=== PATIENT | male | born 1965 | race Caucasian/White ===

== ENCOUNTER 2018-06-27 08:30 | Outpatient (AMBR) | payer MEDICARE, MEDICAID, SELFPAY ==
--- NOTE | 2018-06-20 08:45 | PT.OIERPT ---
PT OP Initial Eval Patient Information Visit Reasons: knee pain Medical Diagnosis: Z47.89 Treatment Dx #1: Right Knee Mobility Deficits Treatment Dx #2: Right Knee Weakness Start of Care: 06/20/18 Date of Onset: 05/28/18 Initial Assessment Subjective Pt is a 52 y/o male s/p right knee arthroscopic surgery with hardware removal from the proximal tibia. Pt still has pain (7/10) leading to difficulty with functional tasks. Pt has difficulty with prolonged sitting, standing, chores, yardwork, recreational activities, and performing normal ADLs. Objective Right Knee AROM: 0 deg to 115 deg Right Knee MMTs Quads: 4-/5 Hs: 3/5 Right Hip MMTs Glute Med: 3/5 Glute Max: 3/5 Knee Cap Mobility: decrease in all plane Knee Outcome Score: 21% Assessment Pt demonstrate right knee mobility and strength deficits s/p arthroscopy leading to decline function and difficulty with functional tasks. 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 1) Increase right knee MMTs to 4/5 and knee outcome score to 69% in 6 wks to be able to perform squatting and kneeling activities 2) Increase right knee AROM WNL in 6 wks to be able to perform recreational activities 3) Increase right hip MMTs to 4-/5 in 6 wks to be able to walk more than 1 mile 4) Indep with HEP Treatment Plan 1) Manual Therapy 2) Therapeutic Activities 3) Therapeutic Exercises 4) Modalities (ice, heat, e-stim) 5) Balance Training 6) Gait Training Frequency and Duration 2 x wk for 6 wks Certification Dates: 06/20/18 to 09/20/18 Office Procedures PT Outpatient G-Codes Date of Service PT Date of Service: 06/20/18 G-Codes Walking & Moving Around Mobility Current Status G-Code: G8978: CM 80-100% Mobility Status G-Code: G8979: CJ 20-40% PT Procedures PT Date of Service: 06/20/18 OP PT Eval Mod Complex 30 minutes: Yes
--- NOTE | 2018-06-27 09:42 | PT.ODAYNRPT ---
PT Outpatient Daily Note Date of Service: June 27, 2018 OP Daily Note Visit Reasons: knee pain Outpatient Physical Therapy Treatment Date: 06/27/18 Subjective: Pt is walking half a football field. Pt's knee is stiff this morning. Objective: Please see flow chart for list of ther ex performed Assessment: tolerate exercises with minimal pain Plan: Continue with PT Length of Time (minutes) of Treatment: 30 Minutes Office Procedures PT Outpatient G-Codes Date of Service PT Date of Service: 06/20/18 G-Codes Walking & Moving Around Mobility Current Status G-Code: G8978: CM 80-100% Mobility Status G-Code: G8979: CJ 20-40% PT Procedures PT Date of Service: 06/20/18 OP PT Eval Mod Complex 30 minutes: Yes PT Procedures PT Date of Service: 06/27/18 Therapeutic Exercise 30 minutes: Yes
== END 2018-07-09 23:59 | disposition home or self-care (01) ==
PROVIDERS: PCP Physician Assistant; Visit Provider Orthopaedic Surgery
DX: Z47.89 Encounter for other orthopedic aftercare (principal); M25.561 Pain in right knee; R53.1 Weakness
CPT/HCPCS: 97110; 97162; G8978; G8979

== ENCOUNTER → 2024-02-06 | Outpatient (BNVA) | payer MEDICARE, MEDICAID, SELFPAY | END | disposition home or self-care (01) | PROVIDERS: PCP Physician Assistant; Referring Provider Physician Assistant; Visit Provider Urology | DX: N40.1 Benign prostatic hyperplasia with lower urinary tract symptoms (principal); R39.12 Poor urinary stream | CPT/HCPCS: 51741; 51798 ==

== ENCOUNTER 2024-07-28 08:12 | Outpatient (AMB) | payer MEDICARE, MEDICAID, SELFPAY ==
[2024-07-28 08:24] VITALS: BP 151/95; PULSE 78; RESP 19; TEMP 36.8; O2SAT 97; BMI 34.9
--- NOTE | 2024-07-28 08:24 | PD.ORTHCLVIS ---
Vital signs 07/28/24 08:24 Height 1.83 m Height Method Stated Weight 116.772 kg Weight Measurement Method Standing Scale BMI 34.9 BP 151/95 H Blood Pressure Source Automatic Cuff Blood Pressure Location Left Upper Arm Position Sitting Respiration 19 Pulse 78 Pulse Source Monitor Temp 98.3 F Temp Source Oral Pulse Oximetry (%) 97 Oxygen Delivery Method Room Air Med/Allergies Allergies & Medications Allergies No Known Allergies Allergy (Verified 07/28/24 08:26) Medication Reconciliation benazepril 40 mg tablet (Lotensin) 40 mg PO QDAY 01/27/18 [History Confirmed 07/28/24] ibuprofen 800 mg tablet 800 mg PO TID PRN Pain 08/11/19 [History Confirmed 07/28/24] multivitamin 1 tab PO QDAY 01/21/24 [History Confirmed 07/28/24] tadalafil 5 mg tablet (Cialis) 5 mg PO QDAY 01/21/24 [History Confirmed 07/28/24] tamsulosin 0.4 mg capsule 0.4 mg PO QDAY 01/21/24 [History Confirmed 07/28/24] Subjective Visit Visit for: new patient and knee Immunization / Flu Flu Vaccine in the Last 12 Months: No Flu Vaccine Exclusion Criteria: No Exclusion Criteria History of Present Illness Chief complaint: RIGHT KNEE OSTEOARTHRITIS Reji is a pleasant 58-year-old male who presents today for evaluation of his right knee. He has a history of multiple ACL reconstructions in the past. He is also tried cortisone injections, hyaluronic acid, ibuprofen, and physical therapy. He reports significant pain on the right knee and is using a cane. His last x-rays were nonweightbearing Personal History Occupation: DISABLED Hobbies: NONE Red flag PMH: none Pain Pain level (0-10): 8 Pain duration: CONSTANT Pain quality: aching and burning Pain timing: night, increases with activity and stairs Associated signs & symptoms: numbness, weakness and stiffness Ambulatory data Ambulatory device: cane Treatments Improvement with previous injections: Yes Improvement with PT: Yes Improvement with NSAIDS: yes Review of Systems Review of Systems: All systems negative unless otherwise noted in HPI. Exam Exam Patient is in no acute distress and is cooperative with the examination today. Breathing is nonlabored. Patient has a normal mood and affect. Bilateral extremities were evaluated and demonstrates sensation intact to light touch. Palpable pedal pulses are present. No significant edema is present. Bilateral hips were examined. The patient has no pain with log roll of the hips. Internal rotation to 30 degrees and external rotation to 30 degrees is painless. Negative FADIR. Left knee was examined today. The left knee is in reasonable alignment. Range of motion from 0-120 degrees. Knee is stable to varus and valgus as well as AP translation with <5mm. Patient has a negative McMurrays. There is no pain with patellofemoral compression and no crepitus noted. The knee is nontender to palpation. The right knee was also examined. The right knee is in [varus] alignment. Range of motion from [0-115] degrees. Knee is stable to varus and valgus as well as AP translation with <5mm. Patient has a [negative] McMurrays. There is [no] pain with patellofemoral compression and [no] crepitus noted. The knee is [tender] to palpation [medially]. X-ray report demonstrates medial and lateral osteophytes as well as a large screw. The films are nonweightbearing Assessment and Plan Problem List (1) Arthritis of knee, degenerative: Status: Acute Plan: Patient is a 58-year-old male with bilateral knee pain worse on the right. Has had prior ACL reconstruction in the past. I think he has significant arthritis on x-ray but the last ones are nonweightbearing. I like to get weightbearing x-rays. We can discuss different treatment options depending on what this shows but he has tried significant care treatment already. We will see him back after his x-rays are done Office Procedures GNS Level of Care Nursing/Assessment Patient Status: Initial/New Patient Nursing Assessment/Reassesment: Medication Reconciliation, Update PMH in EMR and Vital Signs Coordination of Care: Complex Care and Chronic Disease 1-5, Education Complex Pt/Fam, Consent,records obtained, informed consent and Staff clarify orders New Patient Charge New Patient Point Assignment: 1089 New Patient Point Charge: MEDICINE ASSISTANT Level 3 ([id number]) Past Medical History Past Medical History Have you ever been diagnosed with any of the following: Neurological Problems Cerebrovascular Accident (CVA): No Transient Ischemic Attacks (TIA): No Dementia: No Alzheimer's Disease: No Parkinson's Disease: No Brain Tumor: No Meningitis: No Seizures: No Epilepsy: No Multiple Sclerosis: No Cerebral Palsy: No Amyotrophic Lateral Sclerosis (ALS/Violeta Gehrig's): No Guillain-[place] Syndrome: No Spina Bifida: No Paralysis: No Peripheral Neuropathy: No [place]'s Palsy: No Subdural Hematoma: No Migraine: No Head Trauma: Yes Spinal Cord Injury: No Traumatic Brain Injury: No Cardiology Problems Myocardial Infarction: No Cardiac Arrhythmia: No Atrial Fibrillation: No Angina: No Heart Murmur: No Coronary Artery Disease: No Atherosclerotic Heart Disease: No Peripheral Vascular Disease: No Hypercholesterolemia: Yes Aneurysm: No Congestive Heart Failure: No Congenital Heart Disease: No Valvular Heart Disease: No Rheumatic Fever: No Cardiomyopathy: No Edema: No Pericarditis: No Cellulitis: No Deep Vein Thrombosis: No Hypertension: Yes Hypotension: No Varicose Veins: No Respiratory Problems Chronic Obstructive Pulmonary Disease (COPD): No Asthma: No Bronchitis: No Emphysema: No Pneumonia: No Pulmonary Fibrosis: No Tuberculosis: No Pulmonary Embolism: No Pulmonary Edema: No Sleep Apnea: No Smoking: No Stomache/Intestinal Problems Cirrhosis: No Pancreatitis: No Celiac Disease: No Gall Bladder Disease: No Gastrointestinal Bleed: No Esophageal Varices: No Parada's Esophagus: No Colitis: No Ulcerative Colitis: No Diverticulitis: No Diverticulosis: No Ulcer: No Irritable Bowel: No Crohn's Disease: No Obstructive Bowel: No Hiatal Hernia: No Hemorrhoids: No Gastroesophageal Reflux Disease: No Obesity: No Genital/Urinary Problems Renal Disease: No Kidney Stones: No Polycystic Kidney Disease: No Neurogenic Bladder: No Inguinal Hernia: No Dialysis: No Benign Prostatic Hyperplasia: No Reproductive Problems Testicular Cancer: No Musculoskeletal Problems Muscular Dystrophy: No Myasthenia Gravis: No Marfan's Syndrome: No Arthritis: Yes Rheumatoid Arthritis: No Osteoporosis: No Degenerative Disk Disease: No Gout: No Scoliosis: No Carpal Tunnel Syndrome: Yes Fibromyalgia: No Fractures: No Degenerative Joint Disease: No Osteomyelitis: No Poliovirus: No Endocrine Problems Diabetes Mellitus Type 1: No Diabetes Mellitus Type 2: No Hypoglycemia: No [place]'s Syndrome: No Alex's Disease: No Hyperthyroidism: No Hypothyroidism: No Parathyroid Disease: No Pituitary Disease: No Systemic Lupus Erythematosus: No Syndrome of Inappropriate Antidiuretic Hormone: No Adrenal Disease: No Graves' Disease: No Psychologic Problems Depression: Yes Anxiety: Yes Other Problems Blood Transfusions: No Blood Transfusion Reaction: No Anesthesia Reactions: No MRSA: No Chicken Pox: Yes Measles: Yes Surgical History Appendectomy: Yes Total Knee Replacement: Yes Pacemaker: No
== END 2024-07-28 08:40 | disposition home or self-care (01) ==
LOC: HODSRG 08:12
PROVIDERS: PCP Nurse Practitioner Family; Referring Provider Nurse Practitioner Family; Supervising Provider Orthopaedic Surgery Adult Reconstructive Orthopaedic Surgery; Visit Provider Orthopaedic Surgery Adult Reconstructive Orthopaedic Surgery
DX: M17.11 Unilateral primary osteoarthritis, right knee (principal); M25.562 Pain in left knee; M25.561 Pain in right knee; I10 Essential (primary) hypertension; E78.00 Pure hypercholesterolemia, unspecified
CPT/HCPCS: 73564; 99203; G0463

== ENCOUNTER → 2024-07-28 | Outpatient (CLI) | payer MEDICARE, MEDICAID, SELFPAY ==
--- NOTE | 2024-07-28 09:01 | XR_ITS ---
Examination: Bilateral AP knees 2 views Right lateral knee left lateral knee 2 views Right axial knee left axial knee 2 views TECHNIQUE: Bilateral AP knees standing single view, bilateral PA knees standing 30 degrees flexion Staining right lateral knee left lateral knee 2 views Right axial knee left axial knee 2 views total 6 views Exam date and time: July 28, 2024 0946 hours INDICATIONS: Injury to the right knee 20 years ago followed by pain, knee surgery right knee pain years ago FINDINGS: Moderate osteopenia Advanced narrowing medial joint space right knee Moderate to advanced osteoarthritis lateral patellofemoral joint right knee Mild narrowing lateral joint space left knee Mild to moderate osteoarthritis patellofemoral joint IMPRESSION: Advanced medial joint space right knee Moderate to advanced osteoarthritis lateral patellofemoral joints right knee Findings consistent with prior right knee anterior cruciate ligament repair
== END | disposition home or self-care (01) ==
LOC: COPL 07-30 09:55 → CDIM 08-26 07:27
PROVIDERS: PCP Nurse Practitioner Family; Referring Provider Orthopaedic Surgery Adult Reconstructive Orthopaedic Surgery; Visit Provider Orthopaedic Surgery Adult Reconstructive Orthopaedic Surgery
DX: M17.11 Unilateral primary osteoarthritis, right knee (principal); S89.81XS Other specified injuries of right lower leg, sequela; X58.XXXS Exposure to other specified factors, sequela
CPT/HCPCS: 73564

== ENCOUNTER → 2024-08-03 | Outpatient (BNVA) | payer MEDICARE, MEDICAID, SELFPAY | END | disposition home or self-care (01) | PROVIDERS: PCP Physician Assistant; Referring Provider Physician Assistant; Visit Provider Urology | DX: N40.1 Benign prostatic hyperplasia with lower urinary tract symptoms (principal); N13.8 Other obstructive and reflux uropathy; N32.81 Overactive bladder; I10 Essential (primary) hypertension; E78.00 Pure hypercholesterolemia, unspecified | CPT/HCPCS: 76872; 81003; 99212; G0463 ==

== ENCOUNTER 2024-08-25 08:48 | Outpatient (AMB) | payer MEDICARE, MEDICAID, SELFPAY ==
--- NOTE | 2024-08-25 08:52 | PD.ORTHCLVIS ---
Vital signs 08/25/24 08:58 Height 1.83 m Height Method Stated Weight 120.769 kg Weight Measurement Method Standing Scale BMI 36.1 BP 153/87 H Blood Pressure Source Automatic Cuff Blood Pressure Location Right Upper Arm Position Sitting Respiration 19 Pulse 78 Pulse Source Monitor Temp 98.3 F Temp Source Temporal Artery Scan Pulse Oximetry (%) 95 Oxygen Delivery Method Room Air Med/Allergies Allergies & Medications Allergies No Known Allergies Allergy (Verified 08/25/24 09:00) Medication Reconciliation benazepril 40 mg tablet (Lotensin) 40 mg PO QDAY 01/27/18 [History Confirmed 08/25/24] ibuprofen 800 mg tablet 800 mg PO TID PRN Pain 08/11/19 [History Confirmed 08/25/24] multivitamin 1 tab PO QDAY 01/21/24 [History Confirmed 08/25/24] tadalafil 5 mg tablet (Cialis) 5 mg PO QDAY 01/21/24 [History Confirmed 08/25/24] tamsulosin 0.4 mg capsule 0.4 mg PO QDAY 01/21/24 [History Confirmed 08/25/24] oxycodone-acetaminophen 10 mg-325 mg tablet (Percocet) 1 tab PO Q6H PRN severe pain (scale score 7-10) 08/03/24 [History Confirmed 08/25/24] Exam Exam Patient is in no acute distress and is cooperative with the examination today. Breathing is nonlabored. Patient has a normal mood and affect. Bilateral extremities were evaluated and demonstrates sensation intact to light touch. Palpable pedal pulses are present. No significant edema is present. Bilateral hips were examined. The patient has no pain with log roll of the hips. Internal rotation to 30 degrees and external rotation to 30 degrees is painless. Negative FADIR. Left knee was examined today. The left knee is in reasonable alignment. Range of motion from 0-120 degrees. Knee is stable to varus and valgus as well as AP translation with <5mm. Patient has a negative McMurrays. There is no pain with patellofemoral compression and no crepitus noted. The knee is nontender to palpation. The right knee was also examined. The right knee is in [varus] alignment. Range of motion from [0-115] degrees. Knee is stable to varus and valgus as well as AP translation with <5mm. Patient has a [negative] McMurrays. There is [no] pain with patellofemoral compression and [no] crepitus noted. The knee is [tender] to palpation [medially]. Right knee x-rays demonstrate a ACL screw in the femur. It is rather long. The right knee demonstrates significant medial joint space narrowing in both medial and lateral osteophytes. There is varus deformity Assessment and Plan Problem List (1) Arthritis of knee, degenerative: Status: Acute Plan: Patient is a 58-year-old male with bilateral knee pain worse on the right. Has had prior ACL reconstruction in the past. IHe has significant arthritis and has tried significant conservative treatment occluding injections, anti-inflammatories, weight loss, and physical therapy. We thus consider total knee replacement a reasonable option. We will need to get a CT scan to evaluate the placement of the screw. The nature and purpose of the total knee replacement, alternative method(s) of treatment, the material risks involved, and the possibility of complications were fully explained to the patient. The patient does NOT have any of the following contraindications to TKA: - Active infection of the knee joint, OR - Active systemic bacteremia, OR - Active skin infection or open wound at surgical site, OR - Neuropathic arthritis, OR - Severe, rapidly progressive neurological disease, OR - Severe medical condition that makes risks of surgery outweigh the potential benefit The patient was told the most common risks and complications associated with a total knee replacement include, but are not limited to: blood clots in the leg, fatal pulmonary embolism, dislocation of the prosthesis, intraoperative and postoperative fractures of the femur or tibia, infection, failure of the prosthesis or grafting materials, complications from anesthesia, reactions to blood transfusions, postoperative leg length inequality, instability of the knee replacement, nerve damage or injury, vascular injury, delayed wound healing, infection, other injury or even . In addition, there are risks associated with anesthesia given during this operation. Also, the patient was told that after undergoing a total knee replacement there may still be persistent pain or disability. The patient was informed that the success of this operation in part depends upon the mechanical devices which are going to be implanted and that these devices can fail or malfunction, and may need to be repaired or replaced and there are no guarantees as to the longevity of this device or its parts and that it or its parts could fail prematurely. The patient was also notified that during the course of surgery, there may be a need to use bone graft from donors, and that any bone graft used will be carefully screened for communicable diseases, including AIDS, hepatitis, Lalo-Creutzfeldt, or other diseases, but despite the screening procedures, there is a small chance that they could contract one of these diseases. Finally, the patient was asked to follow completely and fully with all advice and recommended treatments, and that recovery and ultimate outcome are affected by their compliance with recommended treatment. We discussed the risks, benefits and treatment alternatives, and the patient is interested in proceeding with surgery. We will try to set this up as expeditiously as possible. Office Procedures GNS Level of Care Nursing/Assessment Patient Status: Established Patient Nursing Assessment/Reassesment: Medication Reconciliation, Update PMH in EMR and Vital Signs Coordination of Care: Complex Care and Chronic Disease 1-5, Education Complex Pt/Fam, Consent,records obtained, informed consent, Results/Orders obtained and Staff clarify orders Established Patient Charge Established Patient Point Assignment: 95 Established Patient Point Charge: EP Level 3 (80-115) MA Intake Visit Data Collection New Patient or Established: Established Patient (seen at [facility] within 3 years) Reason for Visit:: xray resultsX-ray results Seen by Clinical Staff ONLY (RN/MA): No Insurance Agents Supervisor Required: No PCP or OBGYN visit in last 3 months: Yes Hx Now: No Do You Feel Safe at Home: Yes Authorities Contacted: N/A Questionairres Past Medical History Past Medical History Have you ever been diagnosed with any of the following: Neurological Problems Cerebrovascular Accident (CVA): No Transient Ischemic Attacks (TIA): No Dementia: No Alzheimer's Disease: No Parkinson's Disease: No Brain Tumor: No Meningitis: No Seizures: No Epilepsy: No Multiple Sclerosis: No Cerebral Palsy: No Amyotrophic Lateral Sclerosis (ALS/Violeta Gehrig's): No Guillain-[place] Syndrome: No Spina Bifida: No Paralysis: No Peripheral Neuropathy: No [place]'s Palsy: No Subdural Hematoma: No Migraine: No Head Trauma: Yes Spinal Cord Injury: No Traumatic Brain Injury: No Cardiology Problems Myocardial Infarction: No Cardiac Arrhythmia: No Atrial Fibrillation: No Angina: No Heart Murmur: No Coronary Artery Disease: No Atherosclerotic Heart Disease: No Peripheral Vascular Disease: No Hypercholesterolemia: Yes Aneurysm: No Congestive Heart Failure: No Congenital Heart Disease: No Valvular Heart Disease: No Rheumatic Fever: No Cardiomyopathy: No Edema: No Pericarditis: No Cellulitis: No Deep Vein Thrombosis: No Hypertension: Yes Hypotension: No Varicose Veins: No Respiratory Problems Chronic Obstructive Pulmonary Disease (COPD): No Asthma: No Bronchitis: No Emphysema: No Pneumonia: No Pulmonary Fibrosis: No Tuberculosis: No Pulmonary Embolism: No Pulmonary Edema: No Sleep Apnea: No Smoking: No Stomache/Intestinal Problems Cirrhosis: No Pancreatitis: No Celiac Disease: No Gall Bladder Disease: No Gastrointestinal Bleed: No Esophageal Varices: No Parada's Esophagus: No Colitis: No Ulcerative Colitis: No Diverticulitis: No Diverticulosis: No Ulcer: No Irritable Bowel: No Crohn's Disease: No Obstructive Bowel: No Hiatal Hernia: No Hemorrhoids: No Gastroesophageal Reflux Disease: No Obesity: No Genital/Urinary Problems Renal Disease: No Kidney Stones: No Polycystic Kidney Disease: No Neurogenic Bladder: No Inguinal Hernia: No Dialysis: No Benign Prostatic Hyperplasia: No Reproductive Problems Testicular Cancer: No Musculoskeletal Problems Muscular Dystrophy: No Myasthenia Gravis: No Marfan's Syndrome: No Arthritis: Yes Rheumatoid Arthritis: No Osteoporosis: No Degenerative Disk Disease: No Gout: No Scoliosis: No Carpal Tunnel Syndrome: Yes Fibromyalgia: No Fractures: No Degenerative Joint Disease: No Osteomyelitis: No Poliovirus: No Endocrine Problems Diabetes Mellitus Type 1: No Diabetes Mellitus Type 2: No Hypoglycemia: No [place]'s Syndrome: No [place]'s Disease: No Hyperthyroidism: No Hypothyroidism: No Parathyroid Disease: No Pituitary Disease: No Systemic Lupus Erythematosus: No Syndrome of Inappropriate Antidiuretic Hormone: No Adrenal Disease: No Graves' Disease: No Psychologic Problems Depression: Yes Anxiety: Yes Other Problems Blood Transfusions: No Blood Transfusion Reaction: No Anesthesia Reactions: No MRSA: No Chicken Pox: Yes Measles: Yes Surgical History Appendectomy: Yes Total Knee Replacement: Yes Pacemaker: No Subjective Visit Visit for: knee and x-rays (results ) Immunization / Flu Flu Vaccine in the Last 12 Months: Yes Flu Vaccine Exclusion Criteria: Already Received History of Present Illness Chief complaint: Right knee pain Reji is a 58-year-old male with prior ACL reconstruction which was revised with persistent right knee pain. This been ongoing for several years. He has tried hyaluronic acid injections, cortisone, anti-inflammatories, and physical therapy. The pain is affecting his quality life and is using a cane. He has difficulty walking is much as a block Pain Pain level (0-10): 7 Pain location: inside (medial) Pain quality: sharp, dull and aching Pain timing: night and increases with activity Associated signs & symptoms: weakness Ambulatory data Ambulatory device: cane Treatments Improvement with previous injections: No Improvement with PT: No Improvement with NSAIDS: no Review of Systems Review of Systems: All systems negative unless otherwise noted in HPI.
[2024-08-25 08:58] VITALS: BP 153/87; PULSE 78; RESP 19; TEMP 36.8; O2SAT 95; BMI 36.1
== END 2024-08-25 09:37 | disposition home or self-care (01) ==
PROVIDERS: PCP Nurse Practitioner Family; Referring Provider Nurse Practitioner Family; Supervising Provider Orthopaedic Surgery Adult Reconstructive Orthopaedic Surgery; Visit Provider Orthopaedic Surgery Adult Reconstructive Orthopaedic Surgery
DX: M17.9 Osteoarthritis of knee, unspecified (principal); M25.562 Pain in left knee; M25.561 Pain in right knee
CPT/HCPCS: 99213; G0463

== ENCOUNTER → 2024-09-24 | Outpatient (CLI) | payer MEDICARE, MEDICAID, SELFPAY ==
--- NOTE | 2024-09-24 13:39 | XR_ITS ---
Examination: Right knee 4 views TECHNIQUE: AP oblique lateral axial right knee 4 views Exam date and time: September 24, 2024 1405 hours INDICATIONS: Right knee pain several years to knee surgeries FINDINGS: Status post operative reduction internal fixation cruciate ligament repair Advanced narrowing medial joint space left knee Significant osteoarthritis lateral patellofemoral joints No fracture No patellar dislocation IMPRESSION: Advanced tricompartment osteoarthritis, most severe medial joint space
--- NOTE | 2024-09-24 13:42 | XR_ITS ---
Examination: CT right lower extremity, without contrast. 2-D sagittal reconstructions. 2-D coronal reconstructions. 3-D reconstructions. Date and time of exam:September 24, 2024 1433 hours INDICATIONS: Right knee osteoarthritis right knee pain 5 years CTDI: vol (mGy):12.8 DLP: (mGycm):986 Technique: Multiple 1.25 mm axial sections of the right lower extremity without intravenous contrast have been obtained. 2-D sagittal and coronal reconstructions have been obtained. 3-D reconstructions have been obtained. Low dose protocols were performed. One or more of the following dose reduction techniques were used; automated exposure control, adjustment of the mA and/or KV according to patient size, use of iterative reconstruction technique. Findings: Mild osteopenia Mild narrowing right hip joint No right hip fracture or dislocation No avascular necrosis Advanced narrowing medial joint space right knee Advanced narrowing lateral patellofemoral joint with widening of the medial joint space Prior cruciate ligament repair No acute fracture IMPRESSION: Advanced narrowing medial joint space right knee Advanced narrowing lateral patellofemoral joint
== END | disposition home or self-care (01) ==
PROVIDERS: PCP Nurse Practitioner Family; Referring Provider Orthopaedic Surgery Adult Reconstructive Orthopaedic Surgery; Visit Provider Orthopaedic Surgery Adult Reconstructive Orthopaedic Surgery
DX: M25.861 Other specified joint disorders, right knee (principal); M17.11 Unilateral primary osteoarthritis, right knee
CPT/HCPCS: 73564; 73700

== ENCOUNTER 2024-09-25 08:05 | Outpatient (AMB) | payer MEDICARE, MEDICAID, SELFPAY ==
[2024-09-25 08:13] VITALS: BP 133/76; PULSE 83; RESP 18; TEMP 36.6; O2SAT 95; BMI 36.2
--- NOTE | 2024-09-25 08:13 | ORTHONT_ITS ---
Vital signs 09/25/24 08:13 Height 1.83 m Height Method Stated Weight 121.336 kg Weight Measurement Method Standing Scale BMI 36.2 BP 133/76 H Blood Pressure Source Automatic Cuff Blood Pressure Location Right Upper Arm Position Sitting Respiration 18 Pulse 83 Pulse Source Monitor Temp 97.8 F Temp Source Temporal Artery Scan Pulse Oximetry (%) 95 Oxygen Delivery Method Room Air Med/Allergies Allergies & Medications Allergies No Known Allergies Allergy (Verified 09/25/24 08:15) Medication Reconciliation benazepril 40 mg tablet (Lotensin) 40 mg PO QDAY 01/27/18 [History Confirmed ] ibuprofen 800 mg tablet 800 mg PO TID PRN Pain 08/11/19 [History Confirmed 09/25/24] multivitamin 1 tab PO QDAY 01/21/24 [History Confirmed 09/25/24] tadalafil 5 mg tablet (Cialis) 5 mg PO QDAY 01/21/24 [History Confirmed 09/25/24] tamsulosin 0.4 mg capsule 0.4 mg PO QDAY 01/21/24 [History Confirmed 09/25/24] oxycodone-acetaminophen 10 mg-325 mg tablet (Percocet) 1 tab PO Q6H PRN severe pain (scale score 7-10) 08/03/24 [History Confirmed 09/25/24] Exam Exam Patient is in no acute distress and is cooperative with the examination today. Breathing is nonlabored. Patient has a normal mood and affect. Bilateral extremities were evaluated and demonstrates sensation intact to light touch. Palpable pedal pulses are present. No significant edema is present. Bilateral hips were examined. The patient has no pain with log roll of the hips. Internal rotation to 30 degrees and external rotation to 30 degrees is painless. Negative FADIR. Left knee was examined today. The left knee is in reasonable alignment. Range of motion from 0-120 degrees. Knee is stable to varus and valgus as well as AP translation with <5mm. Patient has a negative McMurrays. There is no pain with patellofemoral compression and no crepitus noted. The knee is nontender to palpation. The right knee was also examined. The right knee is in [varus] alignment. Range of motion from [0-115] degrees. Knee is stable to varus and valgus as well as AP translation with <5mm. Patient has a [negative] McMurrays. There is [no] pain with patellofemoral compression and [no] crepitus noted. The knee is [tender] to palpation [medially]. Right knee x-rays demonstrate a ACL screw in the femur. It is rather long. The right knee demonstrates significant medial joint space narrowing in both medial and lateral osteophytes. There is varus deformity Assessment and Plan Problem List (1) Arthritis of knee, degenerative: Status: Acute Plan: Patient is a 58-year-old male with bilateral knee pain worse on the right. Has had prior ACL reconstruction in the past. IHe has significant arthritis and has tried significant conservative treatment occluding injections, anti- inflammatories, weight loss, and physical therapy. We thus consider total knee replacement a reasonable option. We will need to get a CT scan to evaluate the placement of the screw. The patient is on preoperative pain meds. We discussed with him that this could make his recovery a little rough. The nature and purpose of the total knee replacement, alternative method(s) of treatment, the material risks involved, and the possibility of complications were fully explained to the patient. The patient does NOT have any of the following contraindications to TKA: - Active infection of the knee joint, OR - Active systemic bacteremia, OR - Active skin infection or open wound at surgical site, OR - Neuropathic arthritis, OR - Severe, rapidly progressive neurological disease, OR - Severe medical condition that makes risks of surgery outweigh the potential benefit The patient was told the most common risks and complications associated with a total knee replacement include, but are not limited to: blood clots in the leg, fatal pulmonary embolism, dislocation of the prosthesis, intraoperative and postoperative fractures of the femur or tibia, infection, failure of the prosthesis or grafting materials, complications from anesthesia, reactions to blood transfusions, postoperative leg length inequality, instability of the knee replacement, nerve damage or injury, vascular injury, delayed wound healing, infection, other injury or even . In addition, there are risks associated with anesthesia given during this operation. Also, the patient was told that after undergoing a total knee replacement there may still be persistent pain or disability. The patient was informed that the success of this operation in part depends upon the mechanical devices which are going to be implanted and that these devices can fail or malfunction, and may need to be repaired or replaced and there are no guarantees as to the longevity of this device or its parts and that it or its parts could fail prematurely. The patient was also notified that during the course of surgery, there may be a need to use bone graft from donors, and that any bone graft used will be carefully screened for communicable diseases, including AIDS, hepatitis, Lalo-Creutzfeldt, or other diseases, but despite the screening procedures, there is a small chance that they could contract one of these diseases. Finally, the patient was asked to follow completely and fully with all advice and recommended treatments, and that recovery and ultimate outcome are affected by their compliance with recommended treatment. We discussed the risks, benefits and treatment alternatives, and the patient is interested in proceeding with surgery. We will try to set this up as expeditiously as possible. Office Procedures GNS Level of Care Nursing/Assessment Patient Status: Established Patient Nursing Assessment/Reassesment: Medication Reconciliation, Update PMH in EMR and Vital Signs Coordination of Care: Complex Care/Chronic Disease 5 or more, Education Complex Pt/Fam, Consent,records obtained, informed consent, Results/Orders obtained and Staff clarify orders Established Patient Charge Established Patient Point Assignment: 105 Established Patient Point Charge: EP Level 3 (80-115) MA Intake Visit Data Collection New Patient or Established: Established Patient (seen at [facility] within 3 years) Reason for Visit:: PRE OP RIGHT TKA Director Translational Required: No Do You Feel Safe at Home: Yes Questionairres Past Medical History Past Medical History Have you ever been diagnosed with any of the following: Neurological Problems Cerebrovascular Accident (CVA): No Transient Ischemic Attacks (TIA): No Dementia: No Alzheimer's Disease: No Parkinson's Disease: No Brain Tumor: No Meningitis: No Seizures: No Epilepsy: No Multiple Sclerosis: No Cerebral Palsy: No Amyotrophic Lateral Sclerosis (ALS/Violeta Gehrig's): No Guillain-[place] Syndrome: No Spina Bifida: No Paralysis: No Peripheral Neuropathy: No [place]'s Palsy: No Subdural Hematoma: No Migraine: No Head Trauma: Yes Spinal Cord Injury: No Traumatic Brain Injury: No Cardiology Problems Myocardial Infarction: No Cardiac Arrhythmia: No Atrial Fibrillation: No Angina: No Heart Murmur: No Coronary Artery Disease: No Atherosclerotic Heart Disease: No Peripheral Vascular Disease: No Hypercholesterolemia: Yes Aneurysm: No Congestive Heart Failure: No Congenital Heart Disease: No Valvular Heart Disease: No Rheumatic Fever: No Cardiomyopathy: No Edema: No Pericarditis: No Cellulitis: No Deep Vein Thrombosis: No Hypertension: Yes Hypotension: No Varicose Veins: No Respiratory Problems Chronic Obstructive Pulmonary Disease (COPD): No Asthma: No Bronchitis: No Emphysema: No Pneumonia: No Pulmonary Fibrosis: No Tuberculosis: No Pulmonary Embolism: No Pulmonary Edema: No Sleep Apnea: No Smoking: No Stomache/Intestinal Problems Cirrhosis: No Pancreatitis: No Celiac Disease: No Gall Bladder Disease: No Gastrointestinal Bleed: No Esophageal Varices: No Parada's Esophagus: No Colitis: No Ulcerative Colitis: No Diverticulitis: No Diverticulosis: No Ulcer: No Irritable Bowel: No Crohn's Disease: No Obstructive Bowel: No Hiatal Hernia: No Hemorrhoids: No Gastroesophageal Reflux Disease: No Obesity: No Genital/Urinary Problems Renal Disease: No Kidney Stones: No Polycystic Kidney Disease: No Neurogenic Bladder: No Inguinal Hernia: No Dialysis: No Benign Prostatic Hyperplasia: No Reproductive Problems Testicular Cancer: No Musculoskeletal Problems Muscular Dystrophy: No Myasthenia Gravis: No Marfan's Syndrome: No Arthritis: Yes Rheumatoid Arthritis: No Osteoporosis: No Degenerative Disk Disease: No Gout: No Scoliosis: No Carpal Tunnel Syndrome: Yes Fibromyalgia: No Fractures: No Degenerative Joint Disease: No Osteomyelitis: No Poliovirus: No Endocrine Problems Diabetes Mellitus Type 1: No Diabetes Mellitus Type 2: No Hypoglycemia: No Fabrizio's Syndrome: No Lillian's Disease: No Hyperthyroidism: No Hypothyroidism: No Parathyroid Disease: No Pituitary Disease: No Systemic Lupus Erythematosus: No Syndrome of Inappropriate Antidiuretic Hormone: No Adrenal Disease: No Graves' Disease: No Psychologic Problems Depression: Yes Anxiety: Yes Other Problems Blood Transfusions: No Blood Transfusion Reaction: No Anesthesia Reactions: No MRSA: No Chicken Pox: Yes Measles: Yes Surgical History Appendectomy: Yes Total Knee Replacement: Yes Pacemaker: No Subjective Visit Visit for: follow up visit, knee and CT Immunization / Flu Flu Vaccine in the Last 12 Months: Yes Flu Vaccine Exclusion Criteria: Already Received History of Present Illness Chief complaint: PRE OP RIGHT TKA Reji is a 58-year-old male with prior ACL reconstruction which was revised with persistent right knee pain. This been ongoing for several years. He has tried hyaluronic acid injections, cortisone, anti-inflammatories, and physical therapy. The pain is affecting his quality life and is using a cane. He has difficulty walking is much as a block Personal History Red flag PMH: none Pain Pain level (0-10): 9 Pain duration: CONSTANT Pain location: inside (medial), outside (lateral), anterior and posterior Pain quality: sharp Pain timing: night and increases with activity Associated signs & symptoms: numbness and weakness Ambulatory data Ambulatory device: cane Treatments Improvement with previous injections: No Improvement with PT: No Improvement with NSAIDS: no Review of Systems Review of Systems: All systems negative unless otherwise noted in HPI.
== END 2024-09-25 08:31 | disposition home or self-care (01) ==
LOC: HODSRG 08:05
PROVIDERS: PCP Physician Assistant; Referring Provider Physician Assistant; Supervising Provider Orthopaedic Surgery Adult Reconstructive Orthopaedic Surgery; Visit Provider Orthopaedic Surgery Adult Reconstructive Orthopaedic Surgery
DX: M17.11 Unilateral primary osteoarthritis, right knee (principal); M25.861 Other specified joint disorders, right knee; M25.562 Pain in left knee; M25.561 Pain in right knee; Z98.890 Other specified postprocedural states
CPT/HCPCS: 73564; 73700; 99213; G0463

== ENCOUNTER 2024-10-14 09:50 | Day surgery (SDC) | payer MEDICARE, MEDICAID, SELFPAY ==
--- NOTE | 2024-10-13 10:10 | EKG_ITS ---
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
[2024-10-13 10:16] VITALS: BMI 35.9
[2024-10-13 11:26] LABS: Basophils # (Auto) 0.1 Thou/mm3 (0.0-0.2); Basophils % (Auto) 1 % (0-2.5); Eosinophils # (Auto) 0.1 Thou/mm3 (0.0-0.5); Eosinophils % (Auto) 1 % (0-10); Hematocrit 45.1 % (41.0-53.0); Hemoglobin 15.2 g/dL (13.5-16.0); Immature Granulocytes % (Auto) 0 % (0-0); Immature Granulocytes Auto 0.03 Thou/mm3 (0.00-0.00); Lymphocytes # (Auto) 2.5 Thou/mm3 (1.0-4.8); Lymphocytes % (Auto) 33 % (10-50); Mean Corpuscular HGB Conc 33.7 g/dl (31.0-37.0); Mean Corpuscular Hemoglobin 30.6 pg (25.0-35.0); Mean Corpuscular Volume 91 fL (80-100); Monocytes # (Auto) 0.8 Thou/mm3 (0.0-0.8); Monocytes % (Auto) 10 % (0-12); Neutrophils # (Auto) 4.1 Thou/mm3 (1.8-7.7); Neutrophils % (Auto) 54 % (37-80); Nucleated Red Blood Cell % 0 /100 WBC (0); Platelet Count 288 Thou/mm3 (140-440); RDW Standard Deviation 42.5 fL (35.1-43.9); Red Blood Count 4.96 Miln/mm3 (4.50-5.90); White Blood Count 7.5 Thou/mm3 (3.8-10.6)
[2024-10-13 11:34] LABS: INR 0.9 (0.9-1.3); Partial Thromboplastin Time 27.9 Seconds (22.0-36.0); Prothrombin Time 10.4 Seconds (9.0-12.2)
[2024-10-13 11:39] LABS: Alanine Aminotransferase 29 U/L (10-49); Albumin, Serum 5.3 gm/dL (3.4-4.8); Albumin/Globulin Ratio 1.9 (1.2-2.2); Alkaline Phosphatase 76 U/L (46-116); Anion Gap 8 (7-16); Aspartate Amino Transferase 31 U/L (0-34); BUN/Creatinine Ratio 18 Ratio (12-20); Bilirubin,Total 0.3 mg/dL (0.3-1.2); Blood Urea Nitrogen 18 mg/dL (9-23); Calcium 10.9 mg/dL (8.3-10.6); Calcium (Corrected) 10.9 mg/dL (8.5-10.1); Carbon Dioxide 28.5 mMol/L (20.0-31.0); Chloride 106 mMol/L (98-107); Estimated Creatinine Clearance 105.2 mL/min (>60); Globulin 2.8 gm/dL (2.3-3.5); Glucose 100 mg/dL (74-106); Osmolality,Calculated 285 (275-295); Potassium 4.8 mMol/L (3.4-5.1); Sodium 142 mMol/L (136-145); Total Protein 8.1 gm/dL (5.7-8.2); eGFR > 60 See Note
[2024-10-14] VITALS (17 sets, daily range): BP systolic 107–140; BP diastolic 71–96; PULSE 68–93; RESP 11–20; TEMP 36.1–37.2; O2SAT 94–96; BMI 35.9; BMI 37.5
[2024-10-14] MEDS: PREGABALIN 75 MG CAPSULE PO (10:59)
[2024-10-14] MEDS: MELOXICAM 7.5 MG TABLET PO ×2 (10:59→20:38)
[2024-10-14] MEDS: ACETAMINOPHEN 325 MG TABLET 650 MG PO (10:59)
[2024-10-14] MEDS: RINGERS LACTATED 1000 ML 1,000 ML 20 ML IV (11:00)
[2024-10-14] MEDS: ALBUTEROL/IPRATROPIUM (Duoneb) RT SOL 3 ML NEBU INH (14:13)
--- NOTE | 2024-10-14 16:59 | ESOP_ITS ---
Date of Procedure 10/14/24 Pre Op Diagnosis right knee postraumatic osteoarthritis Post Op Diagnosis right knee postraumatic osteoarthritis Procedure right total knee replacement robotic Findings full thickness cartilage loss and osteophytes Procedure Description Indication: The patient is a 59 year old who has a long history of right knee pain. X-rays show degenerative arthritis involving the knee. Over the past several years the patient has had increasing pain, progressive limitation in function. He has failed conservative measures including activity modification, physical therapy, injections, anti-inflammatories, and assistive devices. After a lengthy discussion of the risks and benefits, the patient presents now for total knee r eplacement. The nature and purpose of the total knee replacement, alternative method(s) of treatment, the material risks involved, and the possibility of complications were fully explained to the patient. The patient was told the most common risks and complications associated with a total knee replacement include, but are not limited to blood clots in the leg, fatal pulmonary embolism, dislocation of the prosthesis, intraoperative and postoperative fractures of the femur or tibia, infection, failure of the prosthesis or grafting materials, complications from anesthesia, reactions to blood transfusions, postoperative leg length inequality, instability of the knee replacement, nerve damage or injury, vascular injury, delayed wound healing, infections, other injury or even . In addition, there are risks associated with anesthesia given during this operation, temporary or permanent numbness on the skin lateral to the incision can be a complication unique to total knee surgery, and kneeling can be painful after knee replacement surgery. Also, the patient was told that after undergoing a total knee replacement there may still be pain or disability. We discussed with the patient that we will be using a robot-assisted technology. We discussed that there is a possibility of converting to manual instrumentation. The patient was informed that the success of this operation in part depends upon the mechanical devices which are going to be implanted and that these devices can fail or malfunction, and may need to be repaired or replaced and there are no guarantees as to the longevity of this device or its part and that it or its parts could fail prematurely. Finally, the patient was asked to follow completely and fully with all advice and recommended treatments, and that recovery and ultimate outcome are affected by their compliance with recommended treatment. Surgical technique: Patient was marked and consented in the pre-operative area. The patient was brought to the operating room and placed on the operating table in a supine position. Prior to positioning, a timeout procedure was performed between the surgeon, the anesthesiologist, and the nursing staff where the patient and the operative side were identified and confirmed. After adequate general anesthetic was obtained, the right lower extremity was prepped and draped in the usual sterile fashion. A weight based dose of Cefazolin were administered within 1 hour prior to incision. The robot was preregistered and calirated before the incision. The extremity was exsanguinated with an esmarch badge and tourniquet inflated to 250mmHg. A midline incision was made. A median parapatellar arthrotomy was made. The patella was subluxed laterally. A medial release was performed to expose the medial tibia. His femoral and tibial pins were placed through an intra incisional manner for both cases. Every effort was made to ensure that the distalmost aspect of the pin was hung in the second cortex. The arrays were then tightened several times to ensure that it was fixed for the remainder of the case. Both femoral and tibial checkpoints were then placed. We then went through the registration process of the bone. We then assessed the knee deformity and attempted to correct it. We also used the robot to aid in judging laxity in both extension and flexion. Final based on laxity and alignment we changed the preoperative assessment to obtain proper proper implant positioning and to correct deformity. Attention was then placed to the tibia. We made a tibial cut using the robot ensuring that both the MCL and the patella tendon were protected with retractors. We then went to the femur and made the posterior cut followed by the anterior cut and the anterior chamfer. The bone was then removed and we made a distal femur cut and a posterior chamfer cut. We verified all cuts. A trial reduction was performed with a size 6 femoral component and a size5 keeled tibial component. The patella tracked centrally, and no lateral retinacular release was necessary. The trial implants were removed. The arrays, pins, and checkpoints were all removed. We performed a verification that all pins were removed. The cut bone surfaces were lavaged. A size 6 right femoral component, a size 5 keeled tibial component were impacted into position. The knee was felt to be well balanced in the sagittal and coronal plane. The final 5x10 mm cruciate- substituting articular insert was impacted into the tibial tray. The knee was brought out to full extension, flexed up to 120 degrees. It was stable to varus and valgus stress and appropriately balanced in flexion and extension. The wounds were copiously irrigated following deflation of tourniquet. The medial retinaculum was reapproximated with #1 vicryl and quill. The subcutaneous tissues were closed with 0 and 2-0 interrupted Vicryl. The skin was closed with 3-0 Monofilament V loc suture. A sterile dressing was applied. The patient was transferred to a bed and brought to recovery in stable condition. The patient tolerated the procedure well. There were no intraoperative complications. Sponge and needle counts were correct times 2. As the attending surgeon, I attest I was present and performed the entire operation. Grafts/Implants Size 6 CR Femur Size 5 Tibia 10mm poly CS Anesthesia GETA [facility] Pathology / specimen None Pathology comment: none Estimated Blood Loss 150 Condition Stable Disposition same day Surgeon Raymundo Pate MD Surgical Staff Operation Date: 10/14/24 15:30 Case Staff ARCHITECTURAL SUPERINTENDENT: David Gao RNfinished hardware erector: Yvonne Yanez
--- NOTE | 2024-10-14 17:08 | XR_ITS ---
Examination: Right knee 2 views Technique one AP lateral right knee 2 views Exam date and time: October 14, 2024 1720 hours INDICATIONS: Postop right knee replacement FINDINGS: Total right knee arthroplasty Satisfactory alignment Mild osteopenia. No fracture. IMPRESSION: Total right knee arthroplasty with satisfactory alignment
--- NOTE | 2024-10-14 17:12 | SUR.PHASEI ---
pt received to [facility]. awake, alert and oriented. no complaints of pain on arrival. vss, breathing even and unlabored on 4l oxymask. dressing to right leg cdi with rodrigo wrap dressing. good pedal pulse present. report fron mitchel valdez.
[2024-10-14] MEDS: oxyCODONE/APAP 5/325 TABLET 2 TAB PO (17:34)
[2024-10-14] MEDS: HYDROmorphone INJ 2 MG/ML VIAL 0.5 MG IV ×2 (18:21→18:34)
[2024-10-14] MEDS: fentaNYL CIT INJ 50 mCg/ML AMP 2ML IV (19:07)
--- NOTE | 2024-10-14 20:00 | SUR.PHASEII ---
report called to [facility] in [place]. transported to room with all belongings. vss. breathing even and unlabored. dressing remains cdi. at bedside. tolerated regular diet. pain controlled, pt states tolerable. denies nausea.
[2024-10-14] MEDS: oxyCODONE HCL 5 MG IR TAB 15 MG PO (20:38)
[2024-10-14] MEDS: ASPIRIN EC 81 MG TABEC PO (20:39)
[2024-10-14] MEDS: amLODIPine BESYLATE 5 MG TABLET 10 MG PO (21:04)
[2024-10-14] MEDS: KETOROLAC INJ 30 MG/ML VIAL 15 MG IVP (22:21)
--- NOTE | 2024-10-14 23:45 | PC.NURSE ---
Pt compalinign of pain and those meds that was administered didnt help with his pain, MD Pate made aware, new order made and will carried out.
[2024-10-14] MEDS: HYDROmorphone INJ 2 MG/ML VIAL 0.5 MG IVP (23:46)
[2024-10-15] VITALS: BP 120/87; PULSE 72; RESP 18; TEMP 36.4; O2SAT 94
[2024-10-15] MEDS: oxyCODONE HCL 5 MG IR TAB 10 MG PO (02:50)
[2024-10-15 04:00] VITALS: BP 146/104; PULSE 97; RESP 17; TEMP 36.2; O2SAT 96
[2024-10-15 04:45] VITALS: PULSE 72; RESP 18; RESP 94
[2024-10-15] MEDS: oxyCODONE HCL 5 MG IR TAB 15 MG PO ×2 (06:09→11:25)
--- NOTE | 2024-10-15 06:27 | PC.NURSE ---
Tried to called MD Pate regarding pts pain, per pt all meds that was administered not working, but did not answer his phone, will try again later.
--- NOTE | 2024-10-15 06:45 | PC.NURSE ---
Tried to contact MD Pate but goes to voicemail message, will pass it on to the morning nurse.
--- NOTE | 2024-10-15 06:55 | PC.NURSE ---
MD Pate called and said he will call pharmacy himself for the adjustment of his pain meds.
[2024-10-15 08:00] VITALS: BP 137/98; PULSE 97; RESP 18; TEMP 36.5; O2SAT 96
[2024-10-15] MEDS: KETOROLAC INJ 30 MG/ML VIAL 15 MG IVP (08:25)
[2024-10-15] MEDS: PANTOPRAZOLE INJ 40 MG VIAL IV (08:25)
[2024-10-15 08:26] VITALS: BP 137/98; PULSE 97
[2024-10-15] MEDS: Lisinopril 20 MG TABLET 40 MG PO (08:26)
[2024-10-15] MEDS: ASPIRIN EC 81 MG TABEC PO (08:26)
[2024-10-15] MEDS: MULTIVITAMINS TABLET 1 TAB PO (08:26)
[2024-10-15] MEDS: TAMSULOSIN HCL 0.4 MG CAPSULE PO (08:26)
[2024-10-15] MEDS: ATORVASTATIN CALCIUM 10 MG TABLET PO (08:26)
[2024-10-15 12:00] VITALS: BP 151/91; PULSE 94; RESP 20; TEMP 36.9; O2SAT 96
== END 2024-10-15 13:04 | disposition home or self-care (01) ==
LOC: S2EX 17:03 → S3SX 10-15 07:22
PROVIDERS: Anesthesiology; PCP Nurse Practitioner Family; Referring Provider Orthopaedic Surgery Adult Reconstructive Orthopaedic Surgery; Visit Provider Orthopaedic Surgery Adult Reconstructive Orthopaedic Surgery
PROC: (CPT 27447; principal; 2024-10-14 15:30)
DX: M17.11 Unilateral primary osteoarthritis, right knee (principal); Z01.810 Encounter for preprocedural cardiovascular examination; M25.761 Osteophyte, right knee
CPT/HCPCS: 27447; 20985; 36415; 73560; 80053; 85025; 85610; 85730; 87070; 87075; 87081; 87205; 93005; 97162; A4217; A9270; C1713; C1776; J0690; J1100; J1885; J2250; J2371; J2405; J2470; J2704; J2795; J3010; J3490; J7030; J7120; J7999; A4648; A4649

== ENCOUNTER 2024-10-18 14:03 | Emergency (ER) | payer MEDICARE, MEDICAID, SELFPAY ==
[2024-10-18 14:13] VITALS: BP 154/74; PULSE 118; RESP 20; TEMP 38.8; O2SAT 96
[2024-10-18 14:27] VITALS: BMI 35.9
--- NOTE | 2024-10-18 15:00 | PC.NURSE ---
Patient presents to ED via ambulance with c/o right knee pain after surgical procedure on 10/[address] Pate. Per patient, pain became intolerable last night, c/o 8-05/19 to knee. Noted redness and swelling to right knee, up to thigh and down the leg to ankle area, warm and tender to touch, noted on knee a small open area with bloody drainage. Patient unable to bear weight, nor extend leg due to pain and sensitivity. Patient updated on plan of care and instructed owner consulting engineer light use for safety.
--- NOTE | 2024-10-18 15:00 | EKG_ITS ---
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
--- NOTE | 2024-10-18 15:02 | EDNOTE_ITS ---
<Statement entered by Tanja Choi MD - 10/20/24 06:44> As co-signing physician, I was present and available for consult prn. I concur with the plan and care as documented by the midlevel provider. Lower Extremity Injury RME/HPI General Chief Complaint: Extremity Injury, Lower Stated Complaint: RT LEG PAIN Time Seen by Provider: 10/18/24 14:13 Source: patient and EMS Arrival date/time: 10/18/24 14:03 This is a 59-year-old male who presents to the emergency department with complaints of generalized fatigue, knee pain and fever x 2 days. Patient does report he had a total knee replacement on October 14. Patient reports that 2 days ago he began to experience more pain and noticed more erythema area up to his thigh and on his lower leg. Reports he was taking his pain medication with no improvement of pain prompting his ED visit today. Upon arrival patient did have 101.8 fever. Mode of arrival: EMS Limitations: no limitations Related Data Home Medications ?Medication ?Instructions ?Recorded ?Confirmed benazepril 40 mg tablet (Lotensin) 40 mg PO QDAY 01/2710/14/24 ibuprofen 800 mg tablet 800 mg PO TID PRN Pain 08/1110/14/24 multivitamin 1 tab PO QDAY 01/21/2410/14 tadalafil 5 mg tablet (Cialis) 5 mg PO QDAY 01/21/24 0 10/13/24 tamsulosin 0.4 mg capsule 0.4 mg PO QDAY 01/21/2401/31 oxycodone-acetaminophen 10 mg-325 1 tab PO Q6H PRN sev ere pain 08/03/24 10/14/24 mg tablet (Percocet) (scale score 7-10) amlodipine 10 mg tablet 10 mg PO QDAY 10/13/2410/14 atorvastatin 10 mg tablet 10 mg PO QDAY 10/13/2410/14 Previous Rx's ?Medication ?Instructions ?Recorded aspirin 81 mg tablet,delayed 81 mg PO BID #60 tabs 01/31 release doxycycline hyclate 100 mg tablet 100 mg PO BID #14 ta bs 10/14/24 gabapentin 300 mg capsule 300 mg PO .qhs #30 caps 01/31 sennosides 8.6 mg-docusate sodium 1 tab-cap PO QDAY #3 0 tabs 10/14/24 50 mg tablet (Senna-S) Allergies Allergy/AdvReac Type Severity Reaction Status Date / Time No Known Allergies Allergy Verified 10/18/24 14:24 Review of Systems Review of Systems Systems Reviewed: All systems reviewed, normal except as documented Narrative Review of Systems: Gen: + fever, no chills, no weight loss EYES: No discharge, no visual changes, no pain HEENT: No ear pain, no congestion, no sore throat PULM: No shortness of breath, no cough, no congestion CV: No chest pain, no dyspnea on exertion, no palpitations GI: No nausea, no vomiting, no diarrhea, no pain, no constipation : No frequency, no urgency,? no dysuria Musc/skel: + Right knee pain, no back pain Skin: No rash? Psyc: No hallucinations, no depression Heme/Lymph: No easy bleeding or bruising tendencies Neuro: No weakness, no headache ED Exam General Limitations: Present no limitations General appearance: Present alert and in no apparent distress Head Head exam: Present atraumatic Eye Eye exam: Present normal appearance, PERRL and EOMI ENT ENT exam: Present normal exam, normal oropharynx and mucous membranes moist Neck Neck exam: Present normal inspection, full ROM and trachea midline Chest Chest inspection: Present normal inspection and symmetric chest wall rise Respiratory Respiratory exam: Present normal lung sounds bilaterally Cardiovascular Cardiovascular exam: Present regular rate, normal rhythm and normal heart sounds Abdominal Exam Abdominal exam: Present soft and normal bowel sounds Extremities Exam Extremities exam: Present full ROM Expanded Lower Extremity Exam Hip/Pelvis exam: Present normal inspection Upper leg exam: Present normal inspection Knee exam: Present tenderness, swelling, erythema and other (Is a vertical scar noted anterior right knee. There is erythema, warmth signs of infection noted from mid thigh all the way down to his ankle) Back Exam Back exam: Present normal inspection and full ROM Neurological Exam Neurological exam: Present alert, oriented X3 and CN II-XII intact Psychiatric Psychiatric exam: Present normal affect and normal mood Skin Skin exam: Present warm, dry, intact and normal color Course Quality Measures none Orders Category Date Time Status Bedside Influenza A&B Antigen Test NOW Care 10/18/24 15:00 Completed EKG (ED ONLY) *Do not use* NOW Care 10/18/24 15:00 Completed Insert IV NOW Care 10/18/24 15:01 Completed EKG (ED Only) Stat Exams 10/18/24 15:00 Draft US venous duplex LE RT Stat Exams 10/18/24 15:59 Completed XR chest 1V portable Stat Exams 10/18/24 15:00 Completed B-Type Natriuretic Peptide Stat Lab 10/18/24 15:20 Completed Blood Culture (Lab) Stat Lab 10/18/24 15:20 Received CBC Stat Lab 10/18/24 15:20 Completed Comprehensive Metabolic Panel Stat Lab 10/18/24 15:20 Completed Lactate (Lactic Acid) Stat Lab 10/18/24 15:20 Completed Lipase Stat Lab 10/18/24 15:20 Completed Magnesium Stat Lab 10/18/24 15:20 Completed Partial Thromboplastin Time Stat Lab 10/18/24 15:20 Completed Procalcitonin Stat Lab 10/18/24 15:20 Completed Prothrombin Time with INR Stat Lab 10/18/24 15:20 Completed Sed Rate (ESR) Stat Lab 10/18/24 15:20 Completed Troponin I Stat Lab 10/18/24 15:20 Completed Urinalysis Stat Lab 10/18/24 15:53 Completed Urinalysis, C/S if Indicated Stat Lab 10/18/24 15:53 Completed Acetaminophen Tab [Tylenol ES Tab] Med 10/18/24 15:01 Discontinued 1,000 mg PO X1 ONE Morphine Inj Med 10/18/24 15:35 Discontinued 4 mg IVP X1 ONE Ondansetron Inj [Zofran Inj] Med 10/18/24 15:36 Discontinued 4 mg IV X1 ONE Piper/Tazo Inj [Zosyn Inj] 3.375 gm Med 10/18/24 16:00 Discontinued Sodium Chloride 0.9% (P) [Ns 0.9% (P)] 50 ml IV X1 Sodium Chloride 0.9% 1000 ml [Ns] 1,000 ml Med 10/18/24 15:01 Discontinued IV 999 mls/hr Vancomycin Inj 1,000 mg Med 10/18/24 16:00 Discontinued Sodium Chloride 0.9% 250 ml [Ns] 250 ml IV X1 Vital Signs Vital signs: Vital Signs Temperature 101.8 F H 10/18/24 14:13 Pulse Rate 118 H 10/18/24 14:13 Respiratory Rate 20 10/18/24 14:13 Blood Pressure 154/74 H 10/18/24 14:13 Pulse Oximetry (%) 96 10/18/24 14:13 Oxygen Delivery Method Room Air 10/18/24 14:13 Extremity Injury, Lower MDM Narrative MDM Narrative:: 59-year-old male presented to the emergency department with complaints of fever, right knee pain status post total knee replacement on October 14. On examination patient's leg is mildly warm to touch erythemic from mid thigh d own to ankle. There is no drainage or there does not appear to have an abscess formation. Surgical site closed. Mild serosanguineous drainage at that site. Due to patient's heart rate and temperature sepsis alert was called. Septic workup initiated. Mild leukocytosis, no bandemia. Lactic was negative Pro-Dillon was negative. ESR positive. Patient was given fluids, antipyretics, loading dose of antibiotics. And pain control. Venous Doppler negative for DVT. I did go ahead and place a call out to Dr. Cantu orthopedic. Awaiting callback. Case discussed with Dr. CANTU, orthopedic states that mild redness and fever can be a normal finding after surgery. Patient is already on antibiotics doxycycline advised to complete. Patient will follow-up with Dr. Cantu outpatient basis this week. Advised patient to return to the emergency department this any worsening symptoms change in condition. Patient data External records reviewed:: [facility] previous records Clinical information provided by:: patient Social determinants that could affect healthcare access:: none Patient has the following chronic illnesses:: Hypertension, hyperlipidemia, chronic osteoarthritis, BPH How is presenting disease/condition affected by chronic disease/condition?: uneffected by Evaluation data The following diagnostics were reviewed and interpreted by me:: lab results, radiology exam(s) and EKG tracing(s) Lab and/or radiology exams considered but not ordered:: Yes Interpretation Summary: Examination: AP chest single view Technique one AP portable sitting chest single view Exam date and time: October 18, 2024 1529 hrs. Comparison 05/27/2018 Indications: Fever today. Findings: Normal heart size No lobar pneumonia. The osseous structures are intact. Old deformity distal right clavicle Impression: No pneumonia identified Medications / Prescriptions Medications or Prescriptions considered but not ordered:: No Medication administrations:: Medication Administration History Discontinued Medications Acetaminophen (Acetaminophen 500 Mg Tablet) 1,000 mg PO X1 ONE Stop: 10/18/24 15:02 Last Admin: 10/18/24 15:20 Dose: 1,000 mg Documented By: YSABEL Sodium Chloride (Ns) 1,000 mls @ 999 mls/hr IV .Q1H1M ONE Stop: 10/18/24 16:01 Last Infusion: 10/18/24 16:36 Dose: Infused Documented By: Admin: 10/18/24 15:21 Dose: 999 mls/hr Documented By: YSABEL Vancomycin HCl 1,000 mg/ (Sodium Chloride) 250 mls @ 150 mls/hr IV X1 ONE Stop: 10/18/24 17:39 Last Admin: 10/18/24 17:30 Dose: 150 mls/hr Documented By: ALEXEI Piperacillin Sod/Tazobactam (Sod 3.375 gm/ Sodium Chloride) 50 mls @ 100 mls/hr IV X1 ONE Stop: 10/18/24 16:29 Last Infusion: 10/18/24 17:25 Dose: Infused Documented By: Admin: 10/18/24 16:51 Dose: 100 mls/hr Documented By: YSABEL Morphine Sulfate (Morphine Sulf Inj 10 Mg/Ml Vial) 4 mg IVP X1 ONE Stop: 10/18/24 15:36 Last Admin: 10/18/24 15:46 Dose: 4 mg Documented By: YSABEL Ondansetron HCl (Ondansetron Inj 2 Mg/Ml Inj 2 Ml) 4 mg IV X1 ONE; Protocol Stop: 10/18/24 15:37 Last Admin: 10/18/24 15:44 Dose: 4 mg Documented By: YSABEL All medications administered and effective Consultations Consultation(s) initiated? (list below): Yes Diagnosis Extremity Injury, Lower Differential Diagnosis: ankle sprain and strain, acute internal derangement of knee, fracture of femur, fracture of hip, puncture wound of foot and fracture of toe Most likely diagnosis given after review of the tests above:: Right septic knee, exposed knee replacement. Admission Indicated Admission indicated?: indicated Admission Request Was there a request for admission?: No Disposition Plan Disposition Plan: Admit Discharge Plan Plan Patient Disposition: HOME (Self Care) Patient condition on transfer: Stable Prescriptions/Referrals Prescriptions/Med Rec: No Action tamsulosin 0.4 mg capsule 0.4 mg PO QDAY multivitamin Tablet 1 tab PO QDAY tadalafil [Cialis] 5 mg tablet 5 mg PO QDAY oxycodone-acetaminophen [Percocet] 10-325 mg tablet 1 tab PO Q6H PRN (Reason: severe pain (scale score 7-10)) benazepril [Lotensin] 40 mg tablet 40 mg PO QDAY ibuprofen 800 mg Tablet 800 mg PO TID PRN (Reason: Pain) atorvastatin 10 mg tablet 10 mg PO QDAY amlodipine 10 mg tablet 10 mg PO QDAY sennosides-docusate sodium [Senna-S] 8.6-50 mg tablet 1 tab-cap PO QDAY Qty: 30 0RF aspirin 81 mg tablet,delayed release (DR/EC) 81 mg PO BID Qty: 60 0RF gabapentin 300 mg capsule 300 mg PO .qhs Qty: 30 0RF doxycycline hyclate 100 mg tablet 100 mg PO BID Qty: 14 0RF Referrals: Macy Rousseau FNP [Primary Care Provider] - In 1 week Problem List Clinical Impression: Post-op pain, Fever Patient/Caregiver Discharge Instructions Discharge Activity: activity as tolerated Additional Instructions: - As advised please call Dr. Cantu's office and keep appointment as instructed. -Continue take your antibiotics at home. You can alternate between your pain medication. Did advise if you have any worsening redness erythema to the area please return to the emergency department for second evaluation. Print Language: Albanian Stand Alone Forms: Ondina Award Info., Patient Portal Info Letter COTY/JARAD Supervising Physician COTY/JARAD Supervising Physician: Dr. Blair
[2024-10-18 15:20] VITALS: TEMP 38.8
[2024-10-18] MEDS: ACETAMINOPHEN 500 MG TABLET 1000 MG PO (15:20)
[2024-10-18] MEDS: SODIUM CHLORIDE 0.9% 1000 ML 1,000 ML 999 ML IV (15:21)
[2024-10-18 15:30] LABS: Lactate (Lactic Acid) 1.2 mMol/L (0.4-2.0)
[2024-10-18 15:32] LABS: Basophils % (Auto) 0 % (0-2.5); Eosinophils # (Auto) 0.1 Thou/mm3 (0.0-0.5); Eosinophils % (Auto) 1 % (0-10); Hematocrit 39.9 % (41.0-53.0); Hemoglobin 13.4 g/dL (13.5-16.0); Immature Granulocytes % (Auto) 1 % (0-0); Immature Granulocytes Auto 0.06 Thou/mm3 (0.00-0.00); Lymphocytes # (Auto) 1.9 Thou/mm3 (1.0-4.8); Lymphocytes % (Auto) 17 % (10-50); Mean Corpuscular HGB Conc 33.6 g/dl (31.0-37.0); Mean Corpuscular Hemoglobin 30.6 pg (25.0-35.0); Mean Corpuscular Volume 91 fL (80-100); Monocytes % (Auto) 9 % (0-12); Neutrophils # (Auto) 8.3 Thou/mm3 (1.8-7.7); Neutrophils % (Auto) 73 % (37-80); Nucleated Red Blood Cell % 0 /100 WBC (0); Platelet Count 295 Thou/mm3 (140-440); RDW Standard Deviation 44.2 fL (35.1-43.9); Red Blood Count 4.38 Miln/mm3 (4.50-5.90); White Blood Count 11.3 Thou/mm3 (3.8-10.6)
[2024-10-18] MEDS: ONDANSETRON INJ 2 MG/ML INJ 2 ML 4 MG IV (15:44)
[2024-10-18] MEDS: MORPHINE SULF INJ 10 MG/ML VIAL 4 MG IVP (15:46)
[2024-10-18 15:47] LABS: Partial Thromboplastin Time 28.8 Seconds (22.0-36.0); Prothrombin Time 10.9 Seconds (9.0-12.2)
[2024-10-18 15:52] LABS: B-Type Natriuretic Peptide 42 pg/mL (0-100)
--- NOTE | 2024-10-18 15:59 | XR_ITS ---
Examination: Duplex scan of the lower extremity, unilateral right complete Date and time of exam: October 18, 2024 1708 hrs. Indications: Right Beginning 5 days ago, postop knee replacement October 14, 2024 Technique: Duplex scan of the extremity veins using B-mode/grayscale imaging and Doppler spectral analysis and color flow Attention is directed to internal echogenicity, compression and augmentation involving these veins, color flow assessment, spectral analysis Findings: Major deep venous structures in the extremity demonstrate normal course and caliber. There is no evidence of deep vein thrombosis. Normal color flow and spectral analysis Impression: Negative for DVT..
[2024-10-18 16:00] LABS: Alanine Aminotransferase 24 U/L (10-49); Albumin, Serum 4.7 gm/dL (3.4-4.8); Albumin/Globulin Ratio 1.7 (1.2-2.2); Alkaline Phosphatase 68 U/L (46-116); Anion Gap 7 (7-16); Aspartate Amino Transferase 27 U/L (0-34); BUN/Creatinine Ratio 16 Ratio (12-20); Bilirubin,Total 0.7 mg/dL (0.3-1.2); Blood Urea Nitrogen 13 mg/dL (9-23); Calcium 9.6 mg/dL (8.3-10.6); Calcium (Corrected) 9.6 mg/dL (8.5-10.1); Carbon Dioxide 26.3 mMol/L (20.0-31.0); Chloride 104 mMol/L (98-107); Creatinine (Component) 0.8 mg/dL (0.6-1.3); Estimated Creatinine Clearance 131.4 mL/min (>60); Globulin 2.7 gm/dL (2.3-3.5); Glucose 106 mg/dL (74-106); Lipase 24 U/L (12-53); Magnesium 1.9 mg/dL (1.6-2.6); Osmolality,Calculated 273 (275-295); Potassium 3.7 mMol/L (3.4-5.1); Sodium 137 mMol/L (136-145); Total Protein 7.4 gm/dL (5.7-8.2); Troponin I < 0.020 ng/mL (0.0-0.045); eGFR > 60 See Note
[2024-10-18 16:15] LABS: Collection Type, Urine Clean Catch
[2024-10-18 16:36] LABS: Bilirubin,Urine Negative (Negative); Blood,Urine Trace (Negative); Clarity,Urine Clear (Clear/Hazy); Color,Urine Lt-Yellow (Lt Yel-Yel); Culture Indicated,Urine Not Indicated; Glucose, Urine Negative (Negative); Ketones,Urine Negative (Negative); Leukocyte Esterase,Urine Negative (Negative); Nitrite,Urine Negative (Negative); Protein,Urine Trace (Neg - Trace); RBC,Urine 5 /hpf (0-3); Specific Gravity,Urine 1.021 (1.001-1.035); Squamous Epithelial Cell,Urine < 1 /hpf (0-5); Urobilinogen,Urine Negative mg/dL (0.0-1.0); WBC,Urine 1 /hpf (0-5)
[2024-10-18 16:39] LABS: Sed Rate (ESR) 83 mm/hr (0-20)
[2024-10-18 16:40] VITALS: BP 105/75; PULSE 81; RESP 16; TEMP 37.2; O2SAT 95
[2024-10-18] MEDS: PIPER/TAZO INJ 3.375 GM in SODIUM CHLORIDE 0.9% (P) 50 ML IV (16:51)
--- NOTE | 2024-10-18 17:12 | PC.NURSE ---
US tech at bedside obtaining images.
[2024-10-18 17:25] VITALS: TEMP 37.2
[2024-10-18] MEDS: Vancomycin Inj 1,000 MG in SODIUM CHLORIDE 0.9% 250 ML 250 ML 150 MG IV (17:30)
[2024-10-18 19:48] VITALS: BP 128/91; PULSE 77; RESP 16; TEMP 36.8; O2SAT 98
== END 2024-10-18 19:59 | disposition home or self-care (01) ==
PROVIDERS: Nurse Practitioner Primary Care; Emergency Provider Emergency Medicine; PCP Nurse Practitioner Family
DX: G89.18 Other acute postprocedural pain (principal); M25.561 Pain in right knee; R50.9 Fever, unspecified
CPT/HCPCS: 36415; 71045; 80053; 81001; 83605; 83690; 83735; 83880; 84145; 84484; 85025; 85610; 85652; 85730; 87040; 87400; 87811; 93005; 93971; 96361; 96365; 96375; 99284; J2270; J2405; J2543; J3371; J7030; J7050; A9270

== ENCOUNTER 2024-10-20 11:18 | Outpatient (AMB) | payer MEDICARE, MEDICAID, SELFPAY ==
--- NOTE | 2024-10-20 11:24 | ORTHONT_ITS ---
Vital signs 10/20/24 11:25 Height 1.83 m Height Method Stated Weight 120.202 kg Weight Measurement Method Standing Scale BMI 35.9 BP 154/90 H Blood Pressure Source Automatic Cuff Blood Pressure Location Left Upper Arm Position Sitting Respiration 19 Pulse 109 H Pulse Source Monitor Temp 98.3 F Temp Source Temporal Artery Scan Pulse Oximetry (%) 93 L Oxygen Delivery Method Room Air Med/Allergies Allergies & Medications Allergies No Known Allergies Allergy (Verified 10/20/24 11:26) Medication Reconciliation benazepril 40 mg tablet (Lotensin) 40 mg PO QDAY 01/27/18 [History Confirmed 10/20/24] ibuprofen 800 mg tablet 800 mg PO TID PRN Pain 08/11/19 [History Confirmed 10/20/24] multivitamin 1 tab PO QDAY 01/21/24 [History Confirmed 10/20/24] tadalafil 5 mg tablet (Cialis) 5 mg PO QDAY 01/21/24 [History Confirmed 10/20/24] tamsulosin 0.4 mg capsule 0.4 mg PO QDAY 01/21/24 [History Confirmed 10/20/24] oxycodone-acetaminophen 10 mg-325 mg tablet (Percocet) 1 tab PO Q6H PRN severe pain (scale score 7-10) 08/03/24 [History Confirmed 10/20/24] amlodipine 10 mg tablet 10 mg PO QDAY 10/13/24 [History Confirmed 10/20/24] atorvastatin 10 mg tablet 10 mg PO QDAY 10/13/24 [History Confirmed 10/20/24] aspirin 81 mg tablet,delayed release 81 mg PO BID #60 tabs 10/14/24 [Rx Confirmed 10/20/24] doxycycline hyclate 100 mg tablet 100 mg PO BID #14 tabs 10/14/24 [Rx Confirmed 10/20/24] gabapentin 300 mg capsule 300 mg PO .qhs #30 caps 10/14/24 [Rx Confirmed 10/20/24] sennosides 8.6 mg-docusate sodium 50 mg tablet (Senna-S) 1 tab-cap PO QDAY #30 tabs 10/14/24 [Rx Confirmed 10/20/24] cyclobenzaprine 7.5 mg tablet 7.5 mg PO TID PRN muscle spasm #90 tabs 02/11/25 [Rx] Exam Exam Patient is in no acute distress and is cooperative with the examination today. Breathing is nonlabored. Patient has a normal mood and affect. The patient has a gait that is nonantalgic Bilateral extremities were evaluated and demonstrates sensation intact to light touch. Palpable pedal pulses are present. No significant edema is present. Bilateral hips were examined. The patient has no pain with log roll of the hips. Internal rotation to 30 degrees and external rotation to 30 degrees is painless. Negative FADIR. Right knee incision is clean dry and intact. He has a Band-Aid that has been on for over 1 day. There is minimal drainage on the Band-Aid. There is no active drainage and I will get the knee Assessment and Plan Problem List (1) Arthritis of knee, degenerative: Status: Acute Plan: Patient is a 58-year-old male with bilateral knee pain worse on the right. 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 He has a pain contract and we discussed that he should see the operating provider for pain medication which she is okay with. I sent him a prescription for Flexeril as well to help with the muscle spasms. I am watching him walk with a walker and he is doing great. Office Procedures GNS Level of Care Nursing/Assessment Patient Status: Established Patient Nursing Assessment/Reassesment: Medication Reconciliation, Update PMH in EMR and Vital Signs Coordination of Care: Complex Care and Chronic Disease 1-5, Education Complex Pt/Fam, Consent,records obtained, informed consent, Results/Orders obtained and Staff clarify orders Established Patient Charge Established Patient Point Assignment: 95 Established Patient Point Charge: EP Level 3 (80-115) MA Intake Visit Data Collection New Patient or Established: Established Patient (seen at [facility] within 3 years) Reason for Visit:: ER F/U POST OP Seen by Clinical Staff ONLY (RN/MA): No [employer] Supervisor Required: No PCP or OBGYN visit in last 3 months: Yes Hx Now: No Do You Feel Safe at Home: Yes Authorities Contacted: N/A Questionairres Past Medical History Past Medical History Have you ever been diagnosed with any of the following: Neurological Problems Cerebrovascular Accident (CVA): No Transient Ischemic Attacks (TIA): No Dementia: No Alzheimer's Disease: No Parkinson's Disease: No Brain Tumor: No Meningitis: No Seizures: No Epilepsy: No Multiple Sclerosis: No Cerebral Palsy: No Amyotrophic Lateral Sclerosis (ALS/Violeta Gehrig's): No Guillain-[place] Syndrome: No Spina Bifida: No Paralysis: No Peripheral Neuropathy: No [place]'s Palsy: No Subdural Hematoma: No Migraine: No Head Trauma: Yes Spinal Cord Injury: No Traumatic Brain Injury: No Cardiology Problems Myocardial Infarction: No Cardiac Arrhythmia: No Atrial Fibrillation: No Angina: No Heart Murmur: No Coronary Artery Disease: No Atherosclerotic Heart Disease: No Peripheral Vascular Disease: No Hypercholesterolemia: Yes Aneurysm: No Congestive Heart Failure: No Congenital Heart Disease: No Valvular Heart Disease: No Rheumatic Fever: No Cardiomyopathy: No Edema: No Pericarditis: No Cellulitis: No Deep Vein Thrombosis: No Hypertension: Yes Hypotension: No Varicose Veins: No Respiratory Problems Chronic Obstructive Pulmonary Disease (COPD): No Asthma: No Bronchitis: No Emphysema: No Pneumonia: No Pulmonary Fibrosis: No Tuberculosis: No Pulmonary Embolism: No Pulmonary Edema: No Sleep Apnea: No Smoking: No Stomache/Intestinal Problems Hepatitis: No Cirrhosis: No Pancreatitis: No Celiac Disease: No Gall Bladder Disease: No Gastrointestinal Bleed: No Esophageal Varices: No Parada's Esophagus: No Colitis: No Ulcerative Colitis: No Diverticulitis: No Diverticulosis: No Ulcer: No Irritable Bowel: No Crohn's Disease: No Obstructive Bowel: No Hiatal Hernia: No Hemorrhoids: No Gastroesophageal Reflux Disease: No Obesity: Yes Genital/Urinary Problems Renal Disease: No Kidney Stones: No Polycystic Kidney Disease: No Neurogenic Bladder: No Inguinal Hernia: No Dialysis: No Benign Prostatic Hyperplasia: Yes Reproductive Problems Testicular Cancer: No Musculoskeletal Problems Muscular Dystrophy: No Myasthenia Gravis: No Marfan's Syndrome: No Arthritis: Yes Rheumatoid Arthritis: No Osteoporosis: No Degenerative Disk Disease: No Gout: No Scoliosis: No Carpal Tunnel Syndrome: Yes Fibromyalgia: No Fractures: No Degenerative Joint Disease: No Osteomyelitis: No Poliovirus: No Endocrine Problems Diabetes Mellitus Type 1: No Diabetes Mellitus Type 2: No Hypoglycemia: No Fabrizio's Syndrome: No Mcmullen's Disease: No Hyperthyroidism: No Hypothyroidism: No Parathyroid Disease: No Pituitary Disease: No Systemic Lupus Erythematosus: No Syndrome of Inappropriate Antidiuretic Hormone: No Adrenal Disease: No Graves' Disease: No Psychologic Problems Depression: Yes Anxiety: Yes Other Problems Hospitalization: Yes (surgery, vertigo) Shingles: No Falls: Yes Blood Transfusions: No Blood Transfusion Reaction: No Anesthesia Reactions: No MRSA: No Chicken Pox: Yes Measles: Yes Mumps: Yes Cancer: No Surgical History Appendectomy: Yes Total Knee Replacement: Yes Pacemaker: No Subjective Visit Visit for: follow up visit, post op #1 and knee Immunization / Flu Flu Vaccine in the Last 12 Months: No Flu Vaccine Exclusion Criteria: No Exclusion Criteria History of Present Illness Chief complaint: PRE OP RIGHT TKA Reji is a 58-year-old male with prior ACL reconstruction which was revised with persistent right knee pain. He is now status post right total knee replacement and is doing well. He had scant drainage. He And then went to the ER over the weekend for a fever. They did a fever workup and it was negative Personal History Red flag PMH: none Pain Pain level (0-10): 8 Pain duration: WITH MOVEMENT Pain location: anterior Pain quality: sharp Pain timing: increases with activity Associated signs & symptoms: numbness Ambulatory data Ambulatory device: walker Treatments Improvement with previous injections: No Improvement with PT: No Improvement with NSAIDS: no Review of Systems Review of Systems: All systems negative unless otherwise noted in HPI.
[2024-10-20 11:25] VITALS: BP 154/90; PULSE 109; RESP 19; TEMP 36.8; O2SAT 93; BMI 35.9
== END 2024-10-20 11:35 | disposition home or self-care (01) ==
LOC: HODSRG 11:18
PROVIDERS: PCP Nurse Practitioner Family; Referring Provider Nurse Practitioner Family; Supervising Provider Orthopaedic Surgery Adult Reconstructive Orthopaedic Surgery; Visit Provider Orthopaedic Surgery Adult Reconstructive Orthopaedic Surgery
DX: M17.9 Osteoarthritis of knee, unspecified (principal); M25.562 Pain in left knee; M25.561 Pain in right knee; I10 Essential (primary) hypertension; E78.00 Pure hypercholesterolemia, unspecified
CPT/HCPCS: 99213; G0463

== ENCOUNTER 2024-10-27 14:29 | Outpatient (AMB) | payer MEDICARE, MEDICAID, SELFPAY ==
--- NOTE | 2024-10-27 15:01 | ORTHONT_ITS ---
Vital signs 10/27/24 15:03 Height 1.83 m Height Method Stated Weight 117.736 kg Weight Measurement Method Standing Scale BMI 35.2 BP 130/83 Blood Pressure Source Automatic Cuff Blood Pressure Location Left Upper Arm Position Sitting Respiration 19 Pulse 120 H Pulse Source Monitor Temp 98.0 F Temp Source Temporal Artery Scan Pulse Oximetry (%) 94 L Oxygen Delivery Method Room Air Med/Allergies Allergies & Medications Allergies No Known Allergies Allergy (Verified 10/27/24 15:03) Medication Reconciliation benazepril 40 mg tablet (Lotensin) 40 mg PO QDAY 01/27/18 [History Confirmed 0 10/27/24] ibuprofen 800 mg tablet 800 mg PO TID PRN Pain 08/11/19 [History Confirmed 10/27/24] multivitamin 1 tab PO QDAY 01/21/24 [History Confirmed 10/27/24] tadalafil 5 mg tablet (Cialis) 5 mg PO QDAY 01/21/24 [History Confirmed 10/27/24] tamsulosin 0.4 mg capsule 0.4 mg PO QDAY 01/21/24 [History Confirmed 10/27/24] oxycodone-acetaminophen 10 mg-325 mg tablet (Percocet) 1 tab PO Q6H PRN severe p ain (scale score 7-10) 08/03/24 [History Confirmed 10/27/24] amlodipine 10 mg tablet 10 mg PO QDAY 10/13/24 [History Confirmed 10/27/24] atorvastatin 10 mg tablet 10 mg PO QDAY 10/13/24 [History Confirmed 10/27/24] aspirin 81 mg tablet,delayed release 81 mg PO BID #60 tabs 10/14/24 [Rx Confirmed 10/27/24] doxycycline hyclate 100 mg tablet 100 mg PO BID #14 tabs 10/14/24 [Rx Confirmed 10/27/24] gabapentin 300 mg capsule 300 mg PO .qhs #30 caps 10/14/24 [Rx Confirmed 10/27/24] sennosides 8.6 mg-docusate sodium 50 mg tablet (Senna-S) 1 tab-cap PO QDAY #30 tabs 10/14/24 [Rx Confirmed 10/27/24] cyclobenzaprine 7.5 mg tablet 7.5 mg PO TID PRN muscle spasm #90 tabs 10/20/24 [Rx Confirmed 10/27/24] Exam Exam Patient is in no acute distress and is cooperative with the examination today. Breathing is nonlabored. Patient has a normal mood and affect. The patient has a gait that is nonantalgic Bilateral extremities were evaluated and demonstrates sensation intact to light touch. Palpable pedal pulses are present. No significant edema is present. Bilateral hips were examined. The patient has no pain with log roll of the hips. Internal rotation to 30 degrees and external rotation to 30 degrees is painless. Negative FADIR. Right knee incision is clean dry and intact. He has a Band-Aid that has been on for over 1 day. There is minimal drainage on the Band-Aid. There is no active drainage and I will get the knee Assessment and Plan Problem List (1) Arthritis of knee, degenerative: Status: Acute Plan: Patient is a 58-year-old male with bilateral knee pain worse on the right. He is ambulating well. He is still with pain but is on chronic pain medication. He is improving. We will see him in approximately 4 weeks Office Procedures GNS Level of Care Nursing/Assessment Patient Status: Established Patient Nursing Assessment/Reassesment: Medication Reconciliation, Update PMH in EMR and Vital Signs Coordination of Care: Complex Care and Chronic Disease 1-5, Education Complex Pt/Fam, Consent,records obtained, informed consent, Results/Orders obtained and Staff clarify orders Established Patient Charge Established Patient Point Assignment: 95 Established Patient Point Charge: EP Level 3 (80-115) CT Intake Visit Data Collection New Patient or Established: Established Patient (seen at [facility] within 3 years) Reason for Visit:: FOLLOW UP KNEE PAIN 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: No PCP or OBGYN visit in last 3 months: Yes Hx Now: No Do You Feel Safe at Home: Yes Authorities Contacted: N/A Questionairres Past Medical History Past Medical History Have you ever been diagnosed with any of the following: Neurological Problems Cerebrovascular Accident (CVA): No Transient Ischemic Attacks (TIA): No Dementia: No Alzheimer's Disease: No Parkinson's Disease: No Brain Tumor: No Meningitis: No Seizures: No Epilepsy: No Multiple Sclerosis: No Cerebral Palsy: No Amyotrophic Lateral Sclerosis (ALS/Violeta Gehrig's): No Guillain-[place] Syndrome: No Spina Bifida: No Paralysis: No Peripheral Neuropathy: No [place]'s Palsy: No Subdural Hematoma: No Migraine: No Head Trauma: Yes Spinal Cord Injury: No Traumatic Brain Injury: No Cardiology Problems Myocardial Infarction: No Cardiac Arrhythmia: No Atrial Fibrillation: No Angina: No Heart Murmur: No Coronary Artery Disease: No Atherosclerotic Heart Disease: No Peripheral Vascular Disease: No Hypercholesterolemia: Yes Aneurysm: No Congestive Heart Failure: No Congenital Heart Disease: No Valvular Heart Disease: No Rheumatic Fever: No Cardiomyopathy: No Edema: No Pericarditis: No Cellulitis: No Deep Vein Thrombosis: No Hypertension: Yes Hypotension: No Varicose Veins: No Respiratory Problems Chronic Obstructive Pulmonary Disease (COPD): No Asthma: No Bronchitis: No Emphysema: No Pneumonia: No Pulmonary Fibrosis: No Tuberculosis: No Pulmonary Embolism: No Pulmonary Edema: No Sleep Apnea: No Smoking: No Stomache/Intestinal Problems Hepatitis: No Cirrhosis: No Pancreatitis: No Celiac Disease: No Gall Bladder Disease: No Gastrointestinal Bleed: No Esophageal Varices: No Parada's Esophagus: No Colitis: No Ulcerative Colitis: No Diverticulitis: No Diverticulosis: No Ulcer: No Irritable Bowel: No Crohn's Disease: No Obstructive Bowel: No Hiatal Hernia: No Hemorrhoids: No Gastroesophageal Reflux Disease: No Obesity: Yes Genital/Urinary Problems Renal Disease: No Kidney Stones: No Polycystic Kidney Disease: No Neurogenic Bladder: No Inguinal Hernia: No Dialysis: No Benign Prostatic Hyperplasia: Yes Reproductive Problems Testicular Cancer: No Musculoskeletal Problems Muscular Dystrophy: No Myasthenia Gravis: No Marfan's Syndrome: No Arthritis: Yes Rheumatoid Arthritis: No Osteoporosis: No Degenerative Disk Disease: No Gout: No Scoliosis: No Carpal Tunnel Syndrome: Yes Fibromyalgia: No Fractures: No Degenerative Joint Disease: No Osteomyelitis: No Poliovirus: No Endocrine Problems Diabetes Mellitus Type 1: No Diabetes Mellitus Type 2: No Hypoglycemia: No [place]'s Syndrome: No [place]'s Disease: No Hyperthyroidism: No Hypothyroidism: No Parathyroid Disease: No Pituitary Disease: No Systemic Lupus Erythematosus: No Syndrome of Inappropriate Antidiuretic Hormone: No Adrenal Disease: No Graves' Disease: No Psychologic Problems Depression: Yes Anxiety: Yes Other Problems Hospitalization: Yes (surgery, vertigo) Shingles: No Falls: Yes Blood Transfusions: No Blood Transfusion Reaction: No Anesthesia Reactions: No MRSA: No Chicken Pox: Yes Measles: Yes Mumps: Yes Cancer: No Surgical History Appendectomy: Yes Total Knee Replacement: Yes Pacemaker: No Subjective Visit Visit for: follow up visit and knee Immunization / Flu Flu Vaccine in the Last 12 Months: No Flu Vaccine Exclusion Criteria: No Exclusion Criteria History of Present Illness Chief complaint: PRE OP RIGHT TKA Reji is a 58-year-old male with prior ACL reconstruction which was revised with persistent right knee pain. He is now status post right total knee replacement and is doing well. He has no drainage. The knee looks great. Personal History Red flag PMH: none Pain Pain level (0-10): 8 Pain duration: CONSTANT Pain location: inside (medial), anterior and posterior Pain quality: dull, aching and burning Pain timing: increases with activity and stairs Associated signs & symptoms: numbness Ambulatory data Ambulatory device: walker Treatments Improvement with previous injections: No Improvement with PT: No Improvement with NSAIDS: no Review of Systems Review of Systems: All systems negative unless otherwise noted in HPI.
[2024-10-27 15:03] VITALS: BP 130/83; PULSE 120; RESP 19; TEMP 36.7; O2SAT 94; BMI 35.2
== END 2024-10-27 15:19 | disposition home or self-care (01) ==
PROVIDERS: PCP Nurse Practitioner Family; Referring Provider Nurse Practitioner Family; Supervising Provider Orthopaedic Surgery Adult Reconstructive Orthopaedic Surgery; Visit Provider Orthopaedic Surgery Adult Reconstructive Orthopaedic Surgery
DX: M17.9 Osteoarthritis of knee, unspecified (principal); M25.562 Pain in left knee; M25.561 Pain in right knee; G89.29 Other chronic pain; Z96.651 Presence of right artificial knee joint; I10 Essential (primary) hypertension; E78.00 Pure hypercholesterolemia, unspecified
CPT/HCPCS: 99213; G0463

== ENCOUNTER 2024-11-17 13:47 | Outpatient (AMB) | payer MEDICARE, MEDICAID, SELFPAY ==
[2024-11-17 14:58] VITALS: BP 140/86; PULSE 120; RESP 18; TEMP 36.2; O2SAT 97; BMI 34.8
--- NOTE | 2024-11-17 14:58 | ORTHONT_ITS ---
Vital signs 11/17/24 14:58 Height 1.83 m Height Method Stated Weight 116.658 kg Weight Measurement Method Standing Scale BMI 34.8 BP 140/86 H Blood Pressure Source Automatic Cuff Blood Pressure Location Right Upper Arm Position Sitting Respiration 18 Pulse 120 H Pulse Source Monitor Temp 97.2 F Temp Source Temporal Artery Scan Pulse Oximetry (%) 97 Oxygen Delivery Method Room Air Med/Allergies Allergies & Medications Allergies No Known Allergies Allergy (Verified 11/17/24 14:58) Medication Reconciliation benazepril 40 mg tablet (Lotensin) 40 mg PO QDAY 01/27/18 [History Confirmed 11/17/24] ibuprofen 800 mg tablet 800 mg PO TID PRN Pain 08/11/19 [History Confirmed 11/17/24] multivitamin 1 tab PO QDAY 01/21/24 [History Confirmed 11/17/24] tadalafil 5 mg tablet (Cialis) 5 mg PO QDAY 01/21/24 [History Confirmed 11/17/24] tamsulosin 0.4 mg capsule 0.4 mg PO QDAY 01/21/24 [History Confirmed 11/17/24] oxycodone-acetaminophen 10 mg-325 mg tablet (Percocet) 1 tab PO Q6H PRN severe pain (scale score 7-10) 08/03/24 [History Confirmed 11/17/24] amlodipine 10 mg tablet 10 mg PO QDAY 10/13/24 [History Confirmed 11/17/24] atorvastatin 10 mg tablet 10 mg PO QDAY 10/13/24 [History Confirmed 11/17/24] aspirin 81 mg tablet,delayed release 81 mg PO BID #60 tabs 10/14/24 [Rx Confirmed 11/17/24] doxycycline hyclate 100 mg tablet 100 mg PO BID #14 tabs 10/14/24 [Rx Confirmed 11/17/24] gabapentin 300 mg capsule 300 mg PO .qhs #30 caps 10/14/24 [Rx Confirmed 11/17/24] sennosides 8.6 mg-docusate sodium 50 mg tablet (Senna-S) 1 tab-cap PO QDAY #30 tabs 10/14/24 [Rx Confirmed 11/17/24] cyclobenzaprine 7.5 mg tablet 7.5 mg PO TID PRN muscle spasm #90 tabs 02/11/25 [Rx Confirmed 11/17/24] gabapentin 300 mg capsule 300 mg PO .qhs #60 caps 11/02/24 [Rx Confirmed 11/17/24] Exam Exam Patient is in no acute distress and is cooperative with the examination today. Breathing is nonlabored. Patient has a normal mood and affect. The patient has a gait that is nonantalgic Bilateral extremities were evaluated and demonstrates sensation intact to light touch. Palpable pedal pulses are present. No significant edema is present. Bilateral hips were examined. The patient has no pain with log roll of the hips. Internal rotation to 30 degrees and external rotation to 30 degrees is painless. Negative FADIR. Right knee incision is clean dry and intact. He has a Band-Aid that has been on for over 1 day. There is minimal drainage on the Band-Aid. There is no active drainage and I will get the knee X-rays demonstrate a cementless total knee replacement in good alignment and position Assessment and Plan Problem List (1) Arthritis of knee, degenerative: Status: Acute Plan: Patient is a 58-year-old male with bilateral knee pain worse on the right. He is ambulating well. He reports the pain is improving and is now significantly better than prior to surgery. We recommend continued physical therapy and we will see him in 2 months. Office Procedures GNS Level of Care Nursing/Assessment Patient Status: Established Patient Nursing Assessment/Reassesment: Medication Reconciliation, Update PMH in EMR and Vital Signs Coordination of Care: Complex Care and Chronic Disease 1-5, Education Complex Pt/Fam, Consent,records obtained, informed consent, Results/Orders obtained and Staff clarify orders Established Patient Charge Established Patient Point Assignment: 95 Established Patient Point Charge: EP Level 3 (80-115) MA Intake Visit Data Collection New Patient or Established: Established Patient (seen at [facility] within 3 years) Reason for Visit:: POST OP Seen by Clinical Staff ONLY (RN/MA): No Verbal consent obtained for Telemed visit?: 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 PCP or OBGYN visit in last 3 months: Yes Hx Now: No Do You Feel Safe at Home: Yes Authorities Contacted: N/A Questionairres Past Medical History Past Medical History Have you ever been diagnosed with any of the following: Neurological Problems Cerebrovascular Accident (CVA): No Transient Ischemic Attacks (TIA): No Dementia: No Alzheimer's Disease: No Parkinson's Disease: No Brain Tumor: No Meningitis: No Seizures: No Epilepsy: No Multiple Sclerosis: No Cerebral Palsy: No Amyotrophic Lateral Sclerosis (ALS/Violeta Gehrig's): No Guillain-[place] Syndrome: No Spina Bifida: No Paralysis: No Peripheral Neuropathy: No [place]'s Palsy: No Subdural Hematoma: No Migraine: No Head Trauma: Yes Spinal Cord Injury: No Traumatic Brain Injury: No Cardiology Problems Myocardial Infarction: No Cardiac Arrhythmia: No Atrial Fibrillation: No Angina: No Heart Murmur: No Coronary Artery Disease: No Atherosclerotic Heart Disease: No Peripheral Vascular Disease: No Hypercholesterolemia: Yes Aneurysm: No Congestive Heart Failure: No Congenital Heart Disease: No Valvular Heart Disease: No Rheumatic Fever: No Cardiomyopathy: No Edema: No Pericarditis: No Cellulitis: No Deep Vein Thrombosis: No Hypertension: Yes Hypotension: No Varicose Veins: No Respiratory Problems Chronic Obstructive Pulmonary Disease (COPD): No Asthma: No Bronchitis: No Emphysema: No Pneumonia: No Pulmonary Fibrosis: No Tuberculosis: No Pulmonary Embolism: No Pulmonary Edema: No Sleep Apnea: No Smoking: No Stomache/Intestinal Problems Hepatitis: No Cirrhosis: No Pancreatitis: No Celiac Disease: No Gall Bladder Disease: No Gastrointestinal Bleed: No Esophageal Varices: No Parada's Esophagus: No Colitis: No Ulcerative Colitis: No Diverticulitis: No Diverticulosis: No Ulcer: No Irritable Bowel: No Crohn's Disease: No Obstructive Bowel: No Hiatal Hernia: No Hemorrhoids: No Gastroesophageal Reflux Disease: No Obesity: Yes Genital/Urinary Problems Renal Disease: No Kidney Stones: No Polycystic Kidney Disease: No Neurogenic Bladder: No Inguinal Hernia: No Dialysis: No Benign Prostatic Hyperplasia: Yes Reproductive Problems Testicular Cancer: No Musculoskeletal Problems Muscular Dystrophy: No Myasthenia Gravis: No Marfan's Syndrome: No Arthritis: Yes Rheumatoid Arthritis: No Osteoporosis: No Degenerative Disk Disease: No Gout: No Scoliosis: No Carpal Tunnel Syndrome: Yes Fibromyalgia: No Fractures: No Degenerative Joint Disease: No Osteomyelitis: No Poliovirus: No Endocrine Problems Diabetes Mellitus Type 1: No Diabetes Mellitus Type 2: No Hypoglycemia: No Fabrizio's Syndrome: No [place]'s Disease: No Hyperthyroidism: No Hypothyroidism: No Parathyroid Disease: No Pituitary Disease: No Systemic Lupus Erythematosus: No Syndrome of Inappropriate Antidiuretic Hormone: No Adrenal Disease: No Graves' Disease: No Psychologic Problems Depression: Yes Anxiety: Yes Other Problems Hospitalization: Yes (surgery, vertigo) Shingles: No Falls: Yes Blood Transfusions: No Blood Transfusion Reaction: No Anesthesia Reactions: No MRSA: No Chicken Pox: Yes Measles: Yes Mumps: Yes Cancer: No Surgical History Appendectomy: Yes Total Knee Replacement: Yes Pacemaker: No Subjective Visit Visit for: post op #2 and knee Immunization / Flu Flu Vaccine in the Last 12 Months: No Flu Vaccine Exclusion Criteria: No Exclusion Criteria History of Present Illness Chief complaint: POST OP Prem is doing well 6 6 weeks out from his total knee replacement. He has minimal pain. He continues to improve Personal History Occupation: [employer] Red flag PMH: BMI and none BMI Counceling provided: Yes Pain Pain level (0-10): 8 Pain duration: COMES AND GOES Pain location: anterior Pain quality: aching Pain timing: increases with activity Associated signs & symptoms: numbness Ambulatory data Ambulatory device: cane Treatments Improvement with previous injections: No Improvement with PT: No Improvement with NSAIDS: no Review of Systems Review of Systems: All systems negative unless otherwise noted in HPI.
== END 2024-11-17 15:04 | disposition home or self-care (01) ==
LOC: HODSRG 13:47
PROVIDERS: PCP Nurse Practitioner Family; Referring Provider Nurse Practitioner Family; Supervising Provider Orthopaedic Surgery Adult Reconstructive Orthopaedic Surgery; Visit Provider Orthopaedic Surgery Adult Reconstructive Orthopaedic Surgery
DX: M17.0 Bilateral primary osteoarthritis of knee (principal); E78.00 Pure hypercholesterolemia, unspecified; I10 Essential (primary) hypertension; Z96.659 Presence of unspecified artificial knee joint
CPT/HCPCS: 73564; 99213; G0463

== ENCOUNTER → 2024-11-17 | Outpatient (CLI) | payer MEDICARE, MEDICAID, SELFPAY ==
--- NOTE | 2024-11-17 10:05 | XR_ITS ---
Examination: Right knee 4 views Technique: AP oblique lateral axial right knee 4 views Exam date and time: 2024 1017 hrs. Indications: Status post left knee replacement October 2024 Findings: Total right knee arthroplasty. Satisfactory alignment No fracture No loosening of the prosthetic components Impression: Total right knee arthroplasty with satisfactory alignment
== END | disposition home or self-care (01) ==
PROVIDERS: PCP Nurse Practitioner Family; Referring Provider Orthopaedic Surgery Adult Reconstructive Orthopaedic Surgery; Visit Provider Orthopaedic Surgery Adult Reconstructive Orthopaedic Surgery
DX: M17.11 Unilateral primary osteoarthritis, right knee (principal); Z96.652 Presence of left artificial knee joint
CPT/HCPCS: 73564

== ENCOUNTER → 2024-11-30 | Outpatient (BNVA) | payer MEDICARE, MEDICAID, SELFPAY | END | disposition home or self-care (01) | PROVIDERS: PCP Physician Assistant; Referring Provider Physician Assistant; Visit Provider Urology | DX: N40.1 Benign prostatic hyperplasia with lower urinary tract symptoms (principal); N13.8 Other obstructive and reflux uropathy; N31.9 Neuromuscular dysfunction of bladder, unspecified; N52.9 Male erectile dysfunction, unspecified; Z96.659 Presence of unspecified artificial knee joint; I10 Essential (primary) hypertension; E66.9 Obesity, unspecified; Z68.35 Body mass index [BMI] 35.0-35.9, adult | CPT/HCPCS: 81003; 99212; G0463 ==

== ENCOUNTER → 2024-12-14 | Outpatient (CLI) | payer MEDICARE, MEDICAID, SELFPAY ==
--- NOTE | 2024-12-14 17:05 | XR_ITS ---
Examination: Right knee 4 views Technique: AP lateral oblique axial right knee 4 views Exam date and time: December 14, 2024 1730 hrs. Indications: Right knee replacement October 2024 with persistent pain. Findings: Total right knee arthroplasty. Satisfactory alignment. No fracture. No patellar dislocation Patellar chondromalacia Impression: Total right knee arthroplasty with satisfactory alignment
== END | disposition home or self-care (01) ==
PROVIDERS: PCP Nurse Practitioner Family; Referring Provider Orthopaedic Surgery Adult Reconstructive Orthopaedic Surgery; Visit Provider Orthopaedic Surgery Adult Reconstructive Orthopaedic Surgery
DX: M25.561 Pain in right knee (principal); Z96.651 Presence of right artificial knee joint
CPT/HCPCS: 73564

== ENCOUNTER 2024-12-17 13:18 | Outpatient (AMB) | payer MEDICARE, MEDICAID, SELFPAY ==
[2024-12-17 13:34] VITALS: BP 121/79; PULSE 96; RESP 18; TEMP 36.4; O2SAT 95; BMI 35.6
--- NOTE | 2024-12-17 13:34 | ORTHONT_ITS ---
Vital signs 12/17/24 13:34 Height 1.83 m Height Method Stated Weight 119.323 kg Weight Measurement Method Standing Scale BMI 35.6 BP 121/79 Blood Pressure Source Automatic Cuff Blood Pressure Location Right Upper Arm Position Sitting Respiration 18 Pulse 96 Pulse Source Monitor Temp 97.5 F Temp Source Temporal Artery Scan Pulse Oximetry (%) 95 Oxygen Delivery Method Room Air Med/Allergies Allergies & Medications Allergies No Known Allergies Allergy (Verified 12/17/24 13:35) Medication Reconciliation benazepril 40 mg tablet (Lotensin) 40 mg PO QDAY 01/27/18 [History Confirmed 12/17/24] ibuprofen 800 mg tablet 800 mg PO TID PRN Pain 08/11/19 [History Confirmed 12/17/24] multivitamin 1 tab PO QDAY 01/21/24 [History Confirmed 12/17/24] tamsulosin 0.4 mg capsule 0.4 mg PO QDAY 01/21/24 [History Confirmed 12/17/24] amlodipine 10 mg tablet 10 mg PO QDAY 10/13/24 [History Confirmed 12/17/24] atorvastatin 10 mg tablet 10 mg PO QDAY 10/13/24 [History Confirmed 12/17/24] aspirin 81 mg tablet,delayed release 81 mg PO BID #60 tabs 10/14/24 [Rx Confirmed 12/17/24] doxycycline hyclate 100 mg tablet 100 mg PO BID #14 tabs 10/14/24 [Rx Confirmed 12/17/24] vibegron 75 mg tablet (Gemtesa) 75 mg PO QDAY 11/30/24 [History Confirmed 12/17/24] methocarbamol 500 mg tablet 500 mg PO QHS 12/17/24 [History Confirmed 12/17/24] pregabalin 25 mg capsule (Lyrica) 25 mg PO QDAY 12/17/24 [History Confirmed 12/17/24] Exam Exam Patient is in no acute distress and is cooperative with the examination today. Breathing is nonlabored. Patient has a normal mood and affect. The patient has a gait that is nonantalgic Bilateral extremities were evaluated and demonstrates sensation intact to light touch. Palpable pedal pulses are present. No significant edema is present. Bilateral hips were examined. The patient has no pain with log roll of the hips. Internal rotation to 30 degrees and external rotation to 30 degrees is painless. Negative FADIR. Right knee incision is clean dry and intact. Rom is 0-105 degrees X-rays demonstrate a cementless total knee replacement in good alignment and position Assessment and Plan Problem List (1) Arthritis of knee, degenerative: Status: Acute Plan: Patient is a 58-year-old male with bilateral knee pain worse on the right. He is ambulating well. He reports the pain is improving and is now significantly better than prior to surgery. We recommend continued physical therapy and we will see him in 2 months. Office Procedures GNS Level of Care Nursing/Assessment Patient Status: Established Patient Nursing Assessment/Reassesment: Medication Reconciliation, Update PMH in EMR and Vital Signs Coordination of Care: Complex Care and Chronic Disease 1-5, Education Complex Pt/Fam, Consent,records obtained, informed consent, Results/Orders obtained and Staff clarify orders Established Patient Charge Established Patient Point Assignment: 95 Established Patient Point Charge: EP Level 3 (80-115) MA Intake Visit Data Collection New Patient or Established: Established Patient (seen at [facility] within 3 years) Reason for Visit:: POST OP Seen by Clinical Staff ONLY (RN/MA): No Verbal consent obtained 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 Telemed visit?: No 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 PCP or OBGYN visit in last 3 months: Yes Hx Now: No Do You Feel Safe at Home: Yes Authorities Contacted: N/A Questionairres Past Medical History Past Medical History Have you ever been diagnosed with any of the following: Neurological Problems Cerebrovascular Accident (CVA): No Transient Ischemic Attacks (TIA): No Dementia: No Alzheimer's Disease: No Parkinson's Disease: No Brain Tumor: No Meningitis: No Seizures: No Epilepsy: No Multiple Sclerosis: No Cerebral Palsy: No Amyotrophic Lateral Sclerosis (ALS/Violeta Gehrig's): No Guillain-[place] Syndrome: No Spina Bifida: No Paralysis: No Peripheral Neuropathy: No [place]'s Palsy: No Subdural Hematoma: No Migraine: No Head Trauma: Yes Spinal Cord Injury: No Traumatic Brain Injury: No Cardiology Problems Myocardial Infarction: No Cardiac Arrhythmia: No Atrial Fibrillation: No Angina: No Heart Murmur: No Coronary Artery Disease: No Atherosclerotic Heart Disease: No Peripheral Vascular Disease: No Hypercholesterolemia: Yes Aneurysm: No Congestive Heart Failure: No Congenital Heart Disease: No Valvular Heart Disease: No Rheumatic Fever: No Cardiomyopathy: No Edema: No Pericarditis: No Cellulitis: No Deep Vein Thrombosis: No Hypertension: Yes Hypotension: No Varicose Veins: No Respiratory Problems Chronic Obstructive Pulmonary Disease (COPD): No Asthma: No Bronchitis: No Emphysema: No Pneumonia: No Pulmonary Fibrosis: No Tuberculosis: No Pulmonary Embolism: No Pulmonary Edema: No Sleep Apnea: No Smoking: No Stomache/Intestinal Problems Hepatitis: No Cirrhosis: No Pancreatitis: No Celiac Disease: No Gall Bladder Disease: No Gastrointestinal Bleed: No Esophageal Varices: No Parada's Esophagus: No Colitis: No Ulcerative Colitis: No Diverticulitis: No Diverticulosis: No Ulcer: No Irritable Bowel: No Crohn's Disease: No Obstructive Bowel: No Hiatal Hernia: No Hemorrhoids: No Gastroesophageal Reflux Disease: No Obesity: Yes Genital/Urinary Problems Renal Disease: No Kidney Stones: No Polycystic Kidney Disease: No Neurogenic Bladder: No Inguinal Hernia: No Dialysis: No Benign Prostatic Hyperplasia: Yes Reproductive Problems Testicular Cancer: No Musculoskeletal Problems Muscular Dystrophy: No Myasthenia Gravis: No Marfan's Syndrome: No Arthritis: Yes Rheumatoid Arthritis: No Osteoporosis: No Degenerative Disk Disease: No Gout: No Scoliosis: No Carpal Tunnel Syndrome: Yes Fibromyalgia: No Fractures: No Degenerative Joint Disease: No Osteomyelitis: No Poliovirus: No Endocrine Problems Diabetes Mellitus Type 1: No Diabetes Mellitus Type 2: No Hypoglycemia: No Fabrizio's Syndrome: No [place]'s Disease: No Hyperthyroidism: No Hypothyroidism: No Parathyroid Disease: No Pituitary Disease: No Systemic Lupus Erythematosus: No Syndrome of Inappropriate Antidiuretic Hormone: No Adrenal Disease: No Graves' Disease: No Psychologic Problems Depression: Yes Anxiety: Yes Other Problems Hospitalization: Yes (surgery, vertigo) Shingles: No Falls: Yes Blood Transfusions: No Blood Transfusion Reaction: No Anesthesia Reactions: No MRSA: No Chicken Pox: Yes Measles: Yes Mumps: Yes Cancer: No Surgical History Appendectomy: Yes Total Knee Replacement: Yes Pacemaker: No Subjective Visit Visit for: follow up visit, post op #2 and knee Immunization / Flu Flu Vaccine in the Last 12 Months: No Flu Vaccine Exclusion Criteria: No Exclusion Criteria History of Present Illness Chief complaint: POST OP Prem is doing well 10 weeks out from his total knee replacement. He has minimal pain. He continues to improve Personal History Occupation: UNEMPLOYED Red flag PMH: BMI and none BMI Counceling provided: Yes Pain Pain level (0-10): 7 Pain duration: ALL DAY Pain location: inside (medial), outside (lateral), anterior and posterior Pain quality: sharp, dull and aching Pain timing: increases with activity Associated signs & symptoms: numbness and stiffness Ambulatory data Ambulatory device: cane Treatments Improvement with previous injections: No Improvement with PT: No Improvement with NSAIDS: no Review of Systems Review of Systems: All systems negative unless otherwise noted in HPI.
== END 2024-12-17 13:39 | disposition home or self-care (01) ==
LOC: HODSRG 13:18
PROVIDERS: PCP Physician Assistant; Referring Provider Physician Assistant; Supervising Provider Orthopaedic Surgery Adult Reconstructive Orthopaedic Surgery; Visit Provider Orthopaedic Surgery Adult Reconstructive Orthopaedic Surgery
DX: M17.9 Osteoarthritis of knee, unspecified (principal); M25.562 Pain in left knee; M25.561 Pain in right knee; Z96.659 Presence of unspecified artificial knee joint; I10 Essential (primary) hypertension; E78.00 Pure hypercholesterolemia, unspecified
CPT/HCPCS: 99213; G0463

== ENCOUNTER 2025-01-19 07:50 | Outpatient (AMB) | payer MEDICARE, MEDICAID, SELFPAY ==
--- NOTE | 2025-01-19 08:02 | ORTHONT_ITS ---
Vital signs 01/19/25 08:03 Height 1.83 m Height Method Stated Weight 118.416 kg Weight Measurement Method Standing Scale BMI 35.3 BP 145/94 H Blood Pressure Source Automatic Cuff Blood Pressure Location Left Upper Arm Position Sitting Respiration 19 Pulse 89 Pulse Source Monitor Temp 98.7 F Temp Source Temporal Artery Scan Pulse Oximetry (%) 96 Oxygen Delivery Method Room Air Med/Allergies Allergies & Medications Allergies No Known Allergies Allergy (Verified 01/19/25 08:04) Medication Reconciliation benazepril 40 mg tablet (Lotensin) 40 mg PO QDAY 01/27/18 [History Confirmed 01/19/25] ibuprofen 800 mg tablet 800 mg PO TID PRN Pain 08/11/19 [History Confirmed 01/19/25] multivitamin 1 tab PO QDAY 01/21/24 [History Confirmed 01/19/25] tamsulosin 0.4 mg capsule 0.4 mg PO QDAY 01/21/24 [History Confirmed 01/19/25] amlodipine 10 mg tablet 10 mg PO QDAY 10/13/24 [History Confirmed 01/19/25] atorvastatin 10 mg tablet 10 mg PO QDAY 10/13/24 [History Confirmed 01/19/25] aspirin 81 mg tablet,delayed release 81 mg PO BID #60 tabs 10/14/24 [Rx Confirmed 01/19/25] doxycycline hyclate 100 mg tablet 100 mg PO BID #14 tabs 10/14/24 [Rx Confirmed 01/19/25] vibegron 75 mg tablet (Gemtesa) 75 mg PO QDAY 11/30/24 [History Confirmed 01/19/25] methocarbamol 500 mg tablet 500 mg PO QHS 12/17/24 [History Confirmed 01/19/25] pregabalin 25 mg capsule (Lyrica) 25 mg PO QDAY 12/17/24 [History Confirmed 01/19/25] Exam Exam Patient is in no acute distress and is cooperative with the examination today. Breathing is nonlabored. Patient has a normal mood and affect. The patient has a gait that is nonantalgic Bilateral extremities were evaluated and demonstrates sensation intact to light touch. Palpable pedal pulses are present. No significant edema is present. Bilateral hips were examined. The patient has no pain with log roll of the hips. Internal rotation to 30 degrees and external rotation to 30 degrees is painless. Negative FADIR. Right knee incision is clean dry and intact. Rom is 0-105 degrees X-rays demonstrate a cementless total knee replacement in good alignment and position from December 2024 Assessment and Plan Problem List (1) Arthritis of knee, degenerative: Status: Acute Plan: Patient is a 58-year-old male with bilateral knee pain worse on the right. He is ambulating well. He reports the pain is improving and is now significantly better than prior to surgery. We recommend continued physical therapy and we will see him in 3 months. Plan We will see him in 3 months Office Procedures GNS Level of Care Nursing/Assessment Patient Status: Established Patient Nursing Assessment/Reassesment: Medication Reconciliation, Update PMH in EMR and Vital Signs Coordination of Care: Complex Care and Chronic Disease 1-5, Education Complex Pt/Fam, Consent,records obtained, informed consent, Results/Orders obtained and Staff clarify orders Established Patient Charge Established Patient Point Assignment: 95 Established Patient Point Charge: Level 3 (80-115) MA Intake Visit Data Collection New Patient or Established: Established Patient (seen at [facility] within 3 years) Reason for Visit:: KNEE CONCERNS REQ MRI Seen by Clinical Staff ONLY (RN/MA): No Verbal consent obtained for Telemed visit?: No 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 Required: No PCP or OBGYN visit in last 3 months: Yes Hx Now: No Do You Feel Safe at Home: Yes Authorities Contacted: N/A Questionairres Past Medical History Past Medical History Have you ever been diagnosed with any of the following: Neurological Problems Cerebrovascular Accident (CVA): No Transient Ischemic Attacks (TIA): No Dementia: No Alzheimer's Disease: No Parkinson's Disease: No Brain Tumor: No Meningitis: No Seizures: No Epilepsy: No Multiple Sclerosis: No Cerebral Palsy: No Amyotrophic Lateral Sclerosis (ALS/Violeta Gehrig's): No Guillain-[place] Syndrome: No Spina Bifida: No Paralysis: No Peripheral Neuropathy: No [place]'s Palsy: No Subdural Hematoma: No Migraine: No Head Trauma: Yes Spinal Cord Injury: No Traumatic Brain Injury: No Cardiology Problems Myocardial Infarction: No Cardiac Arrhythmia: No Atrial Fibrillation: No Angina: No Heart Murmur: No Coronary Artery Disease: No Atherosclerotic Heart Disease: No Peripheral Vascular Disease: No Hypercholesterolemia: Yes Aneurysm: No Congestive Heart Failure: No Congenital Heart Disease: No Valvular Heart Disease: No Rheumatic Fever: No Cardiomyopathy: No Edema: No Pericarditis: No Cellulitis: No Deep Vein Thrombosis: No Hypertension: Yes Hypotension: No Varicose Veins: No Respiratory Problems Chronic Obstructive Pulmonary Disease (COPD): No Asthma: No Bronchitis: No Emphysema: No Pneumonia: No Pulmonary Fibrosis: No Tuberculosis: No Pulmonary Embolism: No Pulmonary Edema: No Sleep Apnea: No Smoking: Yes Stomache/Intestinal Problems Hepatitis: No Cirrhosis: No Pancreatitis: No Celiac Disease: No Gall Bladder Disease: No Gastrointestinal Bleed: No Esophageal Varices: No Parada's Esophagus: No Colitis: No Ulcerative Colitis: No Diverticulitis: No Diverticulosis: No Ulcer: No Irritable Bowel: No Crohn's Disease: No Obstructive Bowel: No Hiatal Hernia: No Hemorrhoids: No Gastroesophageal Reflux Disease: No Obesity: Yes Genital/Urinary Problems Renal Disease: No Kidney Stones: No Polycystic Kidney Disease: No Neurogenic Bladder: No Inguinal Hernia: No Dialysis: No Benign Prostatic Hyperplasia: Yes Reproductive Problems Testicular Cancer: No Musculoskeletal Problems Muscular Dystrophy: No Myasthenia Gravis: No Marfan's Syndrome: No Arthritis: Yes Rheumatoid Arthritis: No Osteoporosis: No Degenerative Disk Disease: No Gout: No Scoliosis: No Carpal Tunnel Syndrome: Yes Fibromyalgia: No Fractures: No Degenerative Joint Disease: No Osteomyelitis: No Poliovirus: No Endocrine Problems Diabetes Mellitus Type 1: No Diabetes Mellitus Type 2: No Hypoglycemia: No [place]'s Syndrome: No Alex's Disease: No Hyperthyroidism: No Hypothyroidism: No Parathyroid Disease: No Pituitary Disease: No Systemic Lupus Erythematosus: No Syndrome of Inappropriate Antidiuretic Hormone: No Adrenal Disease: No Graves' Disease: No Psychologic Problems Depression: Yes Anxiety: Yes Other Problems Hospitalization: Yes (surgery, vertigo) Shingles: No Falls: Yes Blood Transfusions: No Blood Transfusion Reaction: No Anesthesia Reactions: No MRSA: No Chicken Pox: Yes Measles: Yes Mumps: Yes Cancer: No Surgical History Appendectomy: Yes Total Knee Replacement: Yes Pacemaker: No Subjective Visit Visit for: follow up visit and knee Immunization / Flu Flu Vaccine in the Last 12 Months: No Flu Vaccine Exclusion Criteria: No Exclusion Criteria History of Present Illness Chief complaint: POST OP Shira is doing well 14 weeks out from his total knee replacement. He has minimal pain. He continues to improve Personal History Occupation: UNEMPLOYED Red flag PMH: BMI and none BMI Counceling provided: Yes Pain Pain level (0-10): 6 Pain duration: ON AND OFF Pain location: inside (medial) Pain quality: sharp, dull and aching Pain timing: increases with activity Associated signs & symptoms: numbness Ambulatory data Ambulatory device: none Treatments Improvement with previous injections: No Improvement with PT: No Improvement with NSAIDS: no Review of Systems Review of Systems: All systems negative unless otherwise noted in HPI.
[2025-01-19 08:03] VITALS: BP 145/94; PULSE 89; RESP 19; TEMP 37.1; O2SAT 96; BMI 35.3
== END 2025-01-19 08:22 | disposition home or self-care (01) ==
LOC: HODSRG 07:50
PROVIDERS: PCP Physician Assistant; Referring Provider Physician Assistant; Supervising Provider Orthopaedic Surgery Adult Reconstructive Orthopaedic Surgery; Visit Provider Orthopaedic Surgery Adult Reconstructive Orthopaedic Surgery
DX: M17.0 Bilateral primary osteoarthritis of knee (principal); E78.00 Pure hypercholesterolemia, unspecified; I10 Essential (primary) hypertension
CPT/HCPCS: 99213; G0463

== ENCOUNTER 2025-04-20 08:00 | Outpatient (AMB) | payer MEDICARE, MEDICAID, SELFPAY ==
--- NOTE | 2025-04-20 08:01 | PD.ORTHCLVIS ---
Vital signs 04/20/25 08:09 Height 1.83 m Height Method Measured Weight 116.233 kg Weight Measurement Method Standing Scale BMI 34.7 BP 143/86 H Blood Pressure Source Automatic Cuff Blood Pressure Location Left Upper Arm Position Sitting Respiration 18 Pulse 78 Pulse Source Monitor Temp 98.1 F Temp Source Temporal Artery Scan Pulse Oximetry (%) 97 Oxygen Delivery Method Room Air Med/Allergies Allergies & Medications Allergies No Known Allergies Allergy (Verified 04/20/25 08:10) Medication Reconciliation benazepril 40 mg tablet (Lotensin) 40 mg PO QDAY 01/27/18 [History Confirmed 04/20/25] ibuprofen 800 mg tablet 800 mg PO TID PRN Pain 08/11/19 [History Confirmed 04/20/25] multivitamin 1 tab PO QDAY 01/21/24 [History Confirmed 04/20/25] tamsulosin 0.4 mg capsule 0.4 mg PO QDAY 01/21/24 [History Confirmed 04/20/25] amlodipine 10 mg tablet 10 mg PO QDAY 10/13/24 [History Confirmed 04/20/25] atorvastatin 10 mg tablet 10 mg PO QDAY 10/13/24 [History Confirmed 04/20/25] aspirin 81 mg tablet,delayed release 81 mg PO BID #60 tabs 10/14/24 [Rx Confirmed 04/20/25] doxycycline hyclate 100 mg tablet 100 mg PO BID #14 tabs 10/14/24 [Rx Confirmed 04/20/25] vibegron 75 mg tablet (Gemtesa) 75 mg PO QDAY 11/30/24 [History Confirmed 04/20/25] methocarbamol 500 mg tablet 500 mg PO QHS 12/17/24 [History Confirmed 04/20/25] pregabalin 25 mg capsule (Lyrica) 25 mg PO QDAY 12/17/24 [History Confirmed 04/20/25] Exam Exam Patient is in no acute distress and is cooperative with the examination today. Breathing is nonlabored. Patient has a normal mood and affect. The patient has a gait that is nonantalgic Bilateral extremities were evaluated and demonstrates sensation intact to light touch. Palpable pedal pulses are present. No significant edema is present. Bilateral hips were examined. The patient has no pain with log roll of the hips. Internal rotation to 30 degrees and external rotation to 30 degrees is painless. Negative FADIR. Right knee incision is clean dry and intact. Rom is 0-105 degrees X-rays demonstrate a cementless total knee replacement in good alignment and position from December 2024 Assessment and Plan Problem List (1) Arthritis of knee, degenerative: Status: Acute Plan: Patient is a 58-year-old male with bilateral knee pain worse on the right. He is ambulating well. He reports the pain is improving and is now significantly better than prior to surgery. We will see him in 6 months Office Procedures GNS Level of Care Nursing/Assessment Patient Status: Established Patient Nursing Assessment/Reassesment: Medication Reconciliation, Update PMH in EMR and Vital Signs Coordination of Care: Complex Care and Chronic Disease 1-5, Education Complex Pt/Fam, Consent,records obtained, informed consent, Lab and Imaging orders, Results/Orders obtained and Staff clarify orders Established Patient Charge Established Patient Point Assignment: 110 Established Patient Point Charge: Level 3 (80-115) MA Intake Visit Data Collection New Patient or Established: Established Patient (seen at [facility] within 3 years) Reason for Visit:: FOLLOW UP Seen by Clinical Staff ONLY (RN/MA): No Verbal consent obtained for Telemed visit?: No Client Success Specialist Required: No PCP or OBGYN visit in last 3 months: Yes Hx Now: No Do You Feel Safe at Home: Yes Authorities Contacted: N/A Questionairres Past Medical History Past Medical History Have you ever been diagnosed with any of the following: Neurological Problems Cerebrovascular Accident (CVA): No Transient Ischemic Attacks (TIA): No Dementia: No Alzheimer's Disease: No Parkinson's Disease: No Brain Tumor: No Meningitis: No Seizures: No Epilepsy: No Multiple Sclerosis: No Cerebral Palsy: No Amyotrophic Lateral Sclerosis (ALS/Violeta Gehrig's): No Guillain-[place] Syndrome: No Spina Bifida: No Paralysis: No Peripheral Neuropathy: No [place]'s Palsy: No Subdural Hematoma: No Migraine: No Head Trauma: Yes Spinal Cord Injury: No Traumatic Brain Injury: No Cardiology Problems Myocardial Infarction: No Cardiac Arrhythmia: No Atrial Fibrillation: No Angina: No Heart Murmur: No Coronary Artery Disease: No Atherosclerotic Heart Disease: No Peripheral Vascular Disease: No Hypercholesterolemia: Yes Aneurysm: No Congestive Heart Failure: No Congenital Heart Disease: No Valvular Heart Disease: No Rheumatic Fever: No Cardiomyopathy: No Edema: No Pericarditis: No Cellulitis: No Deep Vein Thrombosis: No Hypertension: Yes Hypotension: No Varicose Veins: No Respiratory Problems Chronic Obstructive Pulmonary Disease (COPD): No Asthma: No Bronchitis: No Emphysema: No Pneumonia: No Pulmonary Fibrosis: No Tuberculosis: No Pulmonary Embolism: No Pulmonary Edema: No Sleep Apnea: No Smoking: Yes Stomache/Intestinal Problems Hepatitis: No Cirrhosis: No Pancreatitis: No Celiac Disease: No Gall Bladder Disease: No Gastrointestinal Bleed: No Esophageal Varices: No Parada's Esophagus: No Colitis: No Ulcerative Colitis: No Diverticulitis: No Diverticulosis: No Ulcer: No Irritable Bowel: No Crohn's Disease: No Obstructive Bowel: No Hiatal Hernia: No Hemorrhoids: No Gastroesophageal Reflux Disease: No Obesity: Yes Genital/Urinary Problems Renal Disease: No Kidney Stones: No Polycystic Kidney Disease: No Neurogenic Bladder: No Inguinal Hernia: No Dialysis: No Benign Prostatic Hyperplasia: Yes Reproductive Problems Testicular Cancer: No Musculoskeletal Problems Muscular Dystrophy: No Myasthenia Gravis: No Marfan's Syndrome: No Arthritis: Yes Rheumatoid Arthritis: No Osteoporosis: No Degenerative Disk Disease: No Gout: No Scoliosis: No Carpal Tunnel Syndrome: Yes Fibromyalgia: No Fractures: No Degenerative Joint Disease: No Osteomyelitis: No Poliovirus: No Endocrine Problems Diabetes Mellitus Type 1: No Diabetes Mellitus Type 2: No Hypoglycemia: No Fabrizio's Syndrome: No [place]'s Disease: No Hyperthyroidism: No Hypothyroidism: No Parathyroid Disease: No Pituitary Disease: No Systemic Lupus Erythematosus: No Syndrome of Inappropriate Antidiuretic Hormone: No Adrenal Disease: No Graves' Disease: No Psychologic Problems Depression: Yes Anxiety: Yes Other Problems Hospitalization: Yes (surgery, vertigo) Shingles: No Falls: Yes Blood Transfusions: No Blood Transfusion Reaction: No Anesthesia Reactions: No MRSA: No Chicken Pox: Yes Measles: Yes Mumps: Yes Cancer: No Surgical History Appendectomy: Yes Total Knee Replacement: Yes Pacemaker: No Subjective Visit Visit for: follow up visit and knee Immunization / Flu Flu Vaccine in the Last 12 Months: No Flu Vaccine Exclusion Criteria: No Exclusion Criteria History of Present Illness Chief complaint: FOLLOW UP Shira is doing well 6 months out from his total knee replacement. He has minimal pain. He continues to improve Personal History Occupation: UNEMPLOYED Red flag PMH: BMI and none BMI Counceling provided: Yes Pain Pain level (0-10): 6 Pain duration: ON AND OFF Pain location: inside (medial) Pain quality: sharp, dull and aching Pain timing: increases with activity Associated signs & symptoms: numbness Ambulatory data Ambulatory device: none Treatments Improvement with previous injections: No Improvement with PT: No Improvement with NSAIDS: no Review of Systems Review of Systems: All systems negative unless otherwise noted in HPI.
[2025-04-20 08:09] VITALS: BP 143/86; PULSE 78; RESP 18; TEMP 36.7; O2SAT 97; BMI 34.7
== END 2025-04-20 08:21 | disposition home or self-care (01) ==
LOC: HODSRG 08:00
PROVIDERS: PCP Physician Assistant; Referring Provider Physician Assistant; Supervising Provider Orthopaedic Surgery Adult Reconstructive Orthopaedic Surgery; Visit Provider Orthopaedic Surgery Adult Reconstructive Orthopaedic Surgery
DX: M17.9 Osteoarthritis of knee, unspecified (principal); M25.562 Pain in left knee; M25.561 Pain in right knee; I10 Essential (primary) hypertension; E78.00 Pure hypercholesterolemia, unspecified; E66.9 Obesity, unspecified; Z71.3 Dietary counseling and surveillance; Z68.34 Body mass index [BMI] 34.0-34.9, adult
CPT/HCPCS: 99213; G0463

== ENCOUNTER → 2025-07-02 | Outpatient (CLI) | payer MEDICARE, MEDICAID, SELFPAY ==
[2025-07-02 08:45] LABS: Basophils # (Auto) 0.0 Thou/mm3 (0.0-0.2); Basophils % (Auto) 1 % (0-2.5); Eosinophils # (Auto) 0.1 Thou/mm3 (0.0-0.5); Eosinophils % (Auto) 2 % (0-10); Hematocrit 42.0 % (41.0-53.0); Hemoglobin 14.2 g/dL (13.5-16.0); Immature Granulocytes Auto 0.03 Thou/mm3 (0.00-0.00); Lymphocytes # (Auto) 1.8 Thou/mm3 (1.0-4.8); Lymphocytes % (Auto) 31 % (10-50); Mean Corpuscular HGB Conc 33.8 g/dl (31.0-37.0); Mean Corpuscular Hemoglobin 31.7 pg (25.0-35.0); Mean Corpuscular Volume 94 fL (80-100); Monocytes # (Auto) 0.6 Thou/mm3 (0.0-0.8); Monocytes % (Auto) 11 % (0-12); Neutrophils # (Auto) 3.3 Thou/mm3 (1.8-7.7); Neutrophils % (Auto) 55 % (37-80); Nucleated Red Blood Cell # 0.00 Thou/mm3 (0.00-0.00); Nucleated Red Blood Cell % 0 /100 WBC (0); Platelet Count 273 Thou/mm3 (140-440); RDW Standard Deviation 43.4 fL (35.1-43.9); Red Blood Count 4.48 Miln/mm3 (4.50-5.90); White Blood Count 5.9 Thou/mm3 (3.8-10.6)
[2025-07-02 09:16] LABS: Alanine Aminotransferase 27 U/L (10-49); Albumin, Serum 4.9 gm/dL (3.4-4.8); Albumin/Globulin Ratio 2.7 (1.2-2.2); Alkaline Phosphatase 64 U/L (46-116); Anion Gap 10 (7-16); Aspartate Amino Transferase 25 U/L (0-34); BUN/Creatinine Ratio 13 Ratio (12-20); Bilirubin,Total 0.3 mg/dL (0.3-1.2); Blood Urea Nitrogen 12 mg/dL (9-23); Calcium 9.3 mg/dL (8.3-10.6); Calcium (Corrected) 9.3 mg/dL (8.5-10.1); Carbon Dioxide 24.4 mMol/L (20.0-31.0); Chloride 111 mMol/L (98-107); Creatinine (Component) 0.9 mg/dL (0.6-1.3); Globulin 1.8 gm/dL (2.3-3.5); Glucose 92 mg/dL (74-106); Osmolality,Calculated 288 (275-295); Potassium 4.7 mMol/L (3.4-5.1); Sodium 145 mMol/L (136-145); Total Protein 6.7 gm/dL (5.7-8.2); eGFR > 60 See Note
== END | disposition home or self-care (01) ==
LOC: COPL 07:05
PROVIDERS: PCP Nurse Practitioner Family; Referring Provider Nurse Practitioner Family; Visit Provider Nurse Practitioner Family
DX: Z01.818 Encounter for other preprocedural examination (principal)
CPT/HCPCS: 36415; 80053; 80061; 83036; 85025

== ENCOUNTER → 2025-07-05 | Outpatient (CLI) | payer MEDICARE, MEDICAID, SELFPAY ==
--- NOTE | 2025-07-05 11:00 | XR_ITS ---
Examination: CT right knee, without contrast. 2-D sagittal reconstructions. 2-D coronal reconstructions. 3-D reconstructions. Date and time of exam: July 05, 2025 12 INDICATIONS: Right knee pain beginning 1 year ago, diagnosis primary unilateral osteoarthritis right knee CTDI: vol (mGy): 9.29 DLP: (mGycm): 260 Technique: Multiple 1.25 mm axial sections of the right knee without intravenous contrast have been obtained. 2-D sagittal and coronal reconstructions have been obtained. 3-D reconstructions have been obtained. Low dose protocols were performed. One or more of the following dose reduction techniques were used; automated exposure control, adjustment of the mA and/or KV according to patient size, use of iterative reconstruction technique. Findings: Prominent osteopenia Total right knee arthroplasty with satisfactory alignment No loosening of the prosthetic components No cortical bone destruction Small knee effusion IMPRESSION: Total right knee arthroplasty with satisfactory alignment No acute fracture No loosening of the prosthetic components, however, if knee pain persists, consider three-phase radioisotope bone scan follow-up
== END | disposition home or self-care (01) ==
PROVIDERS: PCP Nurse Practitioner Family; Referring Provider Nurse Practitioner Family; Visit Provider Nurse Practitioner Family
DX: M25.561 Pain in right knee (principal); Z96.651 Presence of right artificial knee joint
CPT/HCPCS: 73700

== ENCOUNTER 2025-08-10 13:21 | Outpatient (AMB) | payer MEDICARE, MEDICAID, SELFPAY ==
--- NOTE | 2025-08-10 13:45 | PD.ORTHCLVIS ---
Vital signs 08/10/25 13:47 Height 1.83 m Height Method Stated Weight 114.447 kg Weight Measurement Method Standing Scale BMI 34.2 BP 134/84 H Blood Pressure Source Automatic Cuff Blood Pressure Location Left Upper Arm Position Sitting Respiration 19 Pulse 88 Pulse Source Monitor Temp 97.9 F Temp Source Temporal Artery Scan Pulse Oximetry (%) 92 L Oxygen Delivery Method Room Air Med/Allergies Allergies & Medications Allergies No Known Allergies Allergy (Verified 08/10/25 13:47) Medication Reconciliation benazepril 40 mg tablet (Lotensin) 40 mg PO QDAY 01/27/18 [History Confirmed 08/10/25] ibuprofen 800 mg tablet 800 mg PO TID PRN Pain 08/11/19 [History Confirmed 08/10/25] multivitamin 1 tab PO QDAY 01/21/24 [History Confirmed 08/10/25] tamsulosin 0.4 mg capsule 0.4 mg PO QDAY 01/21/24 [History Confirmed 08/10/25] amlodipine 10 mg tablet 10 mg PO QDAY 10/13/24 [History Confirmed 08/10/25] atorvastatin 10 mg tablet 10 mg PO QDAY 10/13/24 [History Confirmed 08/10/25] aspirin 81 mg tablet,delayed release 81 mg PO BID #60 tabs 10/14/24 [Rx Confirmed 08/10/25] doxycycline hyclate 100 mg tablet 100 mg PO BID #14 tabs 10/14/24 [Rx Confirmed 08/10/25] vibegron 75 mg tablet (Gemtesa) 75 mg PO QDAY 11/30/24 [History Confirmed 08/10/25] methocarbamol 500 mg tablet 500 mg PO QHS 12/17/24 [History Confirmed 08/10/25] pregabalin 25 mg capsule (Lyrica) 25 mg PO QDAY 12/17/24 [History Confirmed 08/10/25] Exam Exam Patient is in no acute distress and is cooperative with the examination today. Breathing is nonlabored. Patient has a normal mood and affect. The patient has a gait that is nonantalgic Bilateral extremities were evaluated and demonstrates sensation intact to light touch. Palpable pedal pulses are present. No significant edema is present. Bilateral hips were examined. The patient has no pain with log roll of the hips. Internal rotation to 30 degrees and external rotation to 30 degrees is painless. Negative FADIR. Right knee incision is clean dry and intact. Rom is 0-105 degrees X-rays demonstrate a cementless total knee replacement in good alignment and position from December 2024 Assessment and Plan Problem List (1) Arthritis of knee, degenerative: Status: Acute Plan: Patient is a 58-year-old male with bilateral knee pain worse on the right. He is ambulating well. He is doing so well at the last visit this week. Significant joint pain in his neck shoulders elbows hips and knees as well as his back. The pain starts in his buttocks and radiates down his leg. I do think his persistent pain is most likely related to his back. Given the extent of his pain, I discussed with him he may want to consider getting rheumatological workup or even a workup for hemochromatosis as he appeared to have very brown discolored tissues during the surgery. We will get x-rays and rule out an infection Office Procedures GNS Level of Care Nursing/Assessment Patient Status: Established Patient Nursing Assessment/Reassesment: Medication Reconciliation, Update PMH in EMR and Vital Signs Coordination of Care: Complex Care and Chronic Disease 1-5, Education Complex Pt/Fam, Consent,records obtained, informed consent, Results/Orders obtained and Staff clarify orders Established Patient Charge Established Patient Point Assignment: 95 Established Patient Point Charge: EP Level 3 (80-115) MA Intake Visit Data Collection New Patient or Established: Established Patient (seen at [facility] within 3 years) Reason for Visit:: RIGHT KNEE PAIN-TKA FU CT SCAN Seen by Clinical Staff ONLY (RN/MA): No Verbal consent obtained for Telemed visit?: No 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 Required: No PCP or OBGYN visit in last 3 months: Yes Hx Now: No Do You Feel Safe at Home: Yes Authorities Contacted: N/A Questionairres Past Medical History Past Medical History Have you ever been diagnosed with any of the following: Neurological Problems Cerebrovascular Accident (CVA): No Transient Ischemic Attacks (TIA): No Dementia: No Alzheimer's Disease: No Parkinson's Disease: No Brain Tumor: No Meningitis: No Seizures: No Epilepsy: No Multiple Sclerosis: No Cerebral Palsy: No Amyotrophic Lateral Sclerosis (ALS/Violeta Gehrig's): No Guillain-[place] Syndrome: No Spina Bifida: No Paralysis: No Peripheral Neuropathy: No [place]'s Palsy: No Subdural Hematoma: No Migraine: No Head Trauma: Yes Spinal Cord Injury: No Traumatic Brain Injury: No Cardiology Problems Myocardial Infarction: No Cardiac Arrhythmia: No Atrial Fibrillation: No Angina: No Heart Murmur: No Coronary Artery Disease: No Atherosclerotic Heart Disease: No Peripheral Vascular Disease: No Hypercholesterolemia: Yes Aneurysm: No Congestive Heart Failure: No Congenital Heart Disease: No Valvular Heart Disease: No Rheumatic Fever: No Cardiomyopathy: No Edema: No Pericarditis: No Cellulitis: No Deep Vein Thrombosis: No Hypertension: Yes Hypotension: No Varicose Veins: No Respiratory Problems Chronic Obstructive Pulmonary Disease (COPD): No Asthma: No Bronchitis: No Emphysema: No Pneumonia: No Pulmonary Fibrosis: No Tuberculosis: No Pulmonary Embolism: No Pulmonary Edema: No Sleep Apnea: No Smoking: Yes Stomache/Intestinal Problems Hepatitis: No Cirrhosis: No Pancreatitis: No Celiac Disease: No Gall Bladder Disease: No Gastrointestinal Bleed: No Esophageal Varices: No Parada's Esophagus: No Colitis: No Ulcerative Colitis: No Diverticulitis: No Diverticulosis: No Ulcer: No Irritable Bowel: No Crohn's Disease: No Obstructive Bowel: No Hiatal Hernia: No Hemorrhoids: No Gastroesophageal Reflux Disease: No Obesity: Yes Genital/Urinary Problems Renal Disease: No Kidney Stones: No Polycystic Kidney Disease: No Neurogenic Bladder: No Inguinal Hernia: No Dialysis: No Benign Prostatic Hyperplasia: Yes Reproductive Problems Testicular Cancer: No Musculoskeletal Problems Muscular Dystrophy: No Myasthenia Gravis: No Marfan's Syndrome: No Arthritis: Yes Rheumatoid Arthritis: No Osteoporosis: No Degenerative Disk Disease: No Gout: No Scoliosis: No Carpal Tunnel Syndrome: Yes Fibromyalgia: No Fractures: No Degenerative Joint Disease: No Osteomyelitis: No Poliovirus: No Endocrine Problems Diabetes Mellitus Type 1: No Diabetes Mellitus Type 2: No Hypoglycemia: No [place]'s Syndrome: No Alex's Disease: No Hyperthyroidism: No Hypothyroidism: No Parathyroid Disease: No Pituitary Disease: No Systemic Lupus Erythematosus: No Syndrome of Inappropriate Antidiuretic Hormone: No Adrenal Disease: No Graves' Disease: No Psychologic Problems Depression: Yes Anxiety: Yes Other Problems Hospitalization: Yes (surgery, vertigo) Shingles: No Falls: Yes Blood Transfusions: No Blood Transfusion Reaction: No Anesthesia Reactions: No MRSA: No Chicken Pox: Yes Measles: Yes Mumps: Yes Cancer: No Surgical History Appendectomy: Yes Total Knee Replacement: Yes Pacemaker: No Subjective Visit Visit for: follow up visit and knee Immunization / Flu Flu Vaccine in the Last 12 Months: No Flu Vaccine Exclusion Criteria: No Exclusion Criteria History of Present Illness Chief complaint: FOLLOW UP Shira is doing well 6 months out from his total knee replacement. He reports pain in all his joints of his body. During his surgery, we discussed with him that it seemed that he had a lot of hemosiderin in his tissues and that he may have hemochromatosis. This was never officially worked up and we will start a workup for this with an iron panel. We also discussed need to see his primary care doctor for this as well as I am not exactly experiencing this. We will be comprehensive and order an ESR and CRP as well to rule out infection. I do think this is unlikely. He also has significant pain that starts in his back and radiates all the way down his leg with associated numbness and tingling Personal History Occupation: UNEMPLOYED Red flag PMH: BMI and none BMI Counceling provided: Yes Pain Pain level (0-10): 6 Pain duration: ON AND OFF Pain location: inside (medial) Pain quality: sharp, dull and aching Pain timing: increases with activity Associated signs & symptoms: numbness Ambulatory data Ambulatory device: none Treatments Improvement with previous injections: No Improvement with PT: No Improvement with NSAIDS: no Review of Systems Review of Systems: All systems negative unless otherwise noted in HPI.
[2025-08-10 13:47] VITALS: BP 134/84; PULSE 88; RESP 19; TEMP 36.6; O2SAT 92; BMI 34.2
--- NOTE | 2025-08-10 13:52 | XR_ITS ---
EXAMINATION: Bilateral AP knees 2 views Right lateral knee single view, axial right knee single view TECHNIQUE: Bilateral AP knees standing single view Bilateral PA knees standing single view flexion Lateral right knee standing, axial right knee total 4 views Date and time: August 10, 2025, 1414 hours INDICATIONS: Right knee replacement January 2020 for knee pain 10 months FINDINGS: Mild osteopenia. Total right knee replacement. Satisfactory alignment No loosening of the prosthetic components No patellar dislocation Mild narrowing left medial joint space IMPRESSION: Total right knee arthroplasty with satisfactory alignment
== END 2025-08-10 14:01 | disposition home or self-care (01) ==
PROVIDERS: PCP Nurse Practitioner Family; Referring Provider Nurse Practitioner Family; Supervising Provider Orthopaedic Surgery Adult Reconstructive Orthopaedic Surgery; Visit Provider Orthopaedic Surgery Adult Reconstructive Orthopaedic Surgery
DX: Z47.1 Aftercare following joint replacement surgery (principal); Z96.651 Presence of right artificial knee joint; M25.562 Pain in left knee; M25.561 Pain in right knee; M13.869 Other specified arthritis, unspecified knee; M54.2 Cervicalgia; M25.512 Pain in left shoulder; M25.511 Pain in right shoulder; M25.522 Pain in left elbow; M25.521 Pain in right elbow; M25.552 Pain in left hip; M25.551 Pain in right hip; M54.9 Dorsalgia, unspecified
CPT/HCPCS: 73564; 99213; G0463

== ENCOUNTER → 2025-08-10 | Outpatient (CLI) | payer MEDICARE, MEDICAID, SELFPAY ==
[2025-08-10 15:54] LABS: Sed Rate (ESR) 5 mm/hr (0-20)
[2025-08-10 16:11] LABS: C-Reactive Protein < 0.5 mg/dL (0.0-0.9)
[2025-08-10 16:12] LABS: Iron 76 mcg/dL (65-175); Percent Iron Saturation 23 % (20-55); Total Iron Binding Capacity 324 mcg/dL (250-425); Unsaturated Iron Binding 248 (225-295)
== END | disposition home or self-care (01) ==
PROVIDERS: PCP Nurse Practitioner Family; Referring Provider Orthopaedic Surgery Adult Reconstructive Orthopaedic Surgery; Visit Provider Orthopaedic Surgery Adult Reconstructive Orthopaedic Surgery
DX: M17.9 Osteoarthritis of knee, unspecified (principal)
CPT/HCPCS: 36415; 83540; 83550; 85652; 86140

== ENCOUNTER → 2025-08-10 | Outpatient (CLI) | payer MEDICARE, MEDICAID, SELFPAY ==
--- NOTE | 2025-08-10 | XR_ITS ---
EXAMINATION: Bilateral wrist 6 views TECHNIQUE: AP oblique lateral each wrist total 6 views Date and time: August 10, 2025, 12 0 5:00 p.m. INDICATIONS: Injury 15 years ago to both wrist, bilateral wrist pain. FINDINGS: Mild to moderate osteoarthritis radiocarpal intercarpal and first carpometacarpal joints No wrist erosive arthritis No fractures or avascular necrosis No foreign bodies IMPRESSION: Mild to moderate osteoarthritis as above
--- NOTE | 2025-08-10 | XR_ITS ---
Examination: Bilateral hands, 6 views. Technique: AP, Oblique, Lateral each hand total 6 views Date and time of exam: August 10, 2025, 1127 hours INDICATION: Bilateral hand pain 15 years FINDINGS: Mild juxta articular bone demineralization Mild osteoarthritis radiocarpal intercarpal first metacarpal joints Mild osteoarthritis metacarpophalangeal and interphalangeal joints No erosive arthritis Mild soft tissue vascular calcification No fractures No avascular necrosis Impression: Osteoarthritis as above
--- NOTE | 2025-08-10 | XR_ITS ---
Exam: elbow bilateral, 6 views Technique: Elbow AP, oblique lateral each elbow total 6 views Exam date and time: August 10, 2025, 1157 hours INDICATIONS: Injury to the elbows 15 years ago with persistent elbow pain. FINDINGS: Moderate bilateral elbow osteoarthritis including osteophyte formation involving the coronoid process of the ulna bilaterally No elbow effusions 6 mm, 8 mm old bone density is adjacent to the lateral left humeral condyle No avascular necrosis No acute fractures IMPRESSION: Moderate bilateral elbow osteoarthritis.
== END | disposition home or self-care (01) ==
PROVIDERS: PCP Nurse Practitioner Family; Referring Provider Nurse Practitioner Gerontology; Visit Provider Nurse Practitioner Gerontology
DX: M18.0 Bilateral primary osteoarthritis of first carpometacarpal joints (principal); M19.042 Primary osteoarthritis, left hand; M19.041 Primary osteoarthritis, right hand; M19.032 Primary osteoarthritis, left wrist; M19.031 Primary osteoarthritis, right wrist; M19.022 Primary osteoarthritis, left elbow; M19.021 Primary osteoarthritis, right elbow
CPT/HCPCS: 73080; 73110; 73130